=== PATIENT | female | born 1930 | race Caucasian/White ===

== ENCOUNTER 2017-11-16 01:48 | Inpatient (IN) | payer MEDICARE ==
[2017-11-16 02:11] LABS: ADD MAN DIFF? YES; BASO % 0 % (0-3); EOS # 0.1 x10^3/uL (0.0-0.7); EOS % 1 % (0-3); HEMOGLOBIN 11.8 g/dL (12.0-15.5); LYMPH # 0.8 x10^3/uL (1.0-4.8); LYMPH % 6 % (24-48); MEAN CORPUSCULAR HEMOGLOBIN 28 pg (25-35); MEAN CORPUSCULAR HGB CONC 33 g/dL (31-37); MEAN CORPUSCULAR VOLUME 86 fL (79-100); MONO # 0.5 x10^3/uL (0.0-1.1); MONO % 3 % (0-9); NEUT % 90 % (31-73); PLATELET COUNT 243 x10^3/uL (140-400); RED CELL DISTRIBUTION WIDTH 17.8 % (11.5-14.5); WHITE BLOOD COUNT 14.4 x10^3/uL (4.0-11.0)
[2017-11-16 02:21] LABS: ANION GAP 7 (6-14); BLOOD UREA NITROGEN 19 mg/dL (7-20); BUN/CREATININE RATIO 21 (6-20); CALCIUM 8.7 mg/dL (8.5-10.1); CARBON DIOXIDE 31 mmol/L (21-32); CHLORIDE 99 mmol/L (98-107); CREATININE 0.9 mg/dL (0.6-1.0); GFR 59.1; GLUCOSE 125 mg/dL (70-99); POTASSIUM 3.7 mmol/L (3.5-5.1); SODIUM 137 mmol/L (136-145)
[2017-11-16 02:26] LABS: ALBUMIN 2.9 g/dL (3.4-5.0); ALBUMIN/GLOBULIN RATIO 0.7 (1.0-1.7); ALK PHOS 59 U/L (46-116); ALT (SGPT) 13 U/L (14-59); AST (SGOT) 13 U/L (15-37); MAGNESIUM 1.9 mg/dL (1.8-2.4); TOTAL BILIRUBIN 0.7 mg/dL (0.2-1.0); TOTAL PROTEIN 7.3 g/dL (6.4-8.2)
[2017-11-16 02:31] LABS: NT-PRO BNP 721 pg/mL (0-449)
[2017-11-16 02:32] LABS: TROPONINI < 0.017 ng/mL (0.000-0.055)
[2017-11-16 02:42] LABS: % EOS 2 % (0-5); % LYMPHS 8 % (24-48); % MONOS 1 % (0-10); % SEGS 89 % (35-66); ANISOCYTOSIS SLIGHT; HYPOCHROMIA SLIGHT; PLT ESTIMATE ADEQUATE (ADEQUATE)
[2017-11-16 02:49] LABS: TROPONIN BY ISTAT 0.01 ng/ml (<0.08)
[2017-11-16 03:04] LABS: BILIRUBIN,URINE NEGATIVE (NEG); CLARITY,URINE CLOUDY; COLOR,URINE YELLOW; GLUCOSE,URINE NEGATIVE (NEG); NITRITE,URINE NEGATIVE (NEG); PROTEIN,URINE NEGATIVE (NEG-TRACE); UROBILINOGEN,URINE 0.2 mg/dL (0.2 mg/dL)
[2017-11-16 03:13] LABS: AMORPHOUS SEDIMENT,UR PRESENT /HPF; BACTERIA,URINE 0 /HPF (0-FEW); RBC,URINE RARE /HPF (0-2); WBC,URINE RARE /HPF (0-4)
[2017-11-16] MEDS ORDERED: ONDANSETRON PF 4 MG/2 ML VIAL. IV (03:30)
[2017-11-16] MEDS ORDERED: ACETAMINOPHEN 325 MG TABLET. PO (03:30)
[2017-11-16] MEDS ORDERED: fentaNYL PF VIAL 100 MCG/2 ML VIAL IV (03:30)
[2017-11-16 07:12] LABS: TROPONINI 0.019 ng/mL (0.000-0.055)
[2017-11-16] MEDS ORDERED: LABETALOL 20 MG/4 ML DISP.SYRIN. IVP (08:30)
[2017-11-16] MEDS ORDERED: ANTI-COAG MONITOR BY PHARMACY. MC (08:45)
[2017-11-16] MEDS: LISINOPRIL 20 MG TABLET PO (09:00)
[2017-11-16] MEDS: APIXABAN 2.5 MG TABLET. PO (09:00)
[2017-11-16 09:55] LABS: TROPONINI 0.018 ng/mL (0.000-0.055)
[2017-11-16] MEDS: FUROSEMIDE 20 MG TABLET PO (11:04)
[2017-11-16] MEDS: LEVOTHYROXINE 75 MCG TABLET PO (11:07)
[2017-11-16] MEDS: METOPROLOL SUCC 24HR ER 50 MG TAB.ER.24H. PO (11:09)
[2017-11-16] MEDS: POTASSIUM CHLORIDE 10 MEQ TABLET.ER. PO (11:10)
[2017-11-16] MEDS: DIGOXIN 125 MCG TABLET. PO (11:11)
[2017-11-16] MEDS: AMIODARONE HCL 200 MG TABLET. PO (11:12)
[2017-11-16] MEDS: LIDOCAINE (700MG/PATCH) PATCH. TD (11:21)
[2017-11-16 13:00] LABS: CHOLESTEROL 176 mg/dL (0-200); HDLC 43 mg/dL (40-60); LDLC 106 mg/dL (0-100); NON-HDL CHOLESTEROL 133 mg/dL (0-129); TRIGLYCERIDES 135 mg/dL (0-150); VLDLC 27 mg/dL (0-40)
[2017-11-16 13:05] LABS: CHOLESTEROL/HDL RATIO 4.1
[2017-11-16] MEDS: PATCH REMOVAL. MC (21:00)
[2017-11-17 05:17] LABS: ADD MAN DIFF? NO
[2017-11-17 05:41] LABS: BASO % 0 % (0-3); EOS # 0.2 x10^3/uL (0.0-0.7); EOS % 3 % (0-3); HEMOGLOBIN 11.1 g/dL (12.0-15.5); LYMPH # 1.9 x10^3/uL (1.0-4.8); LYMPH % 24 % (24-48); MEAN CORPUSCULAR HEMOGLOBIN 29 pg (25-35); MEAN CORPUSCULAR HGB CONC 34 g/dL (31-37); MEAN CORPUSCULAR VOLUME 86 fL (79-100); MONO # 0.9 x10^3/uL (0.0-1.1); MONO % 11 % (0-9); NEUT # 4.7 x10^3uL (1.8-7.7); NEUT % 61 % (31-73); PLATELET COUNT 202 x10^3/uL (140-400); RED BLOOD COUNT 3.84 x10^6/uL (3.50-5.40); WHITE BLOOD COUNT 7.8 x10^3/uL (4.0-11.0)
[2017-11-17 06:00] LABS: ALBUMIN 2.6 g/dL (3.4-5.0); ALBUMIN/GLOBULIN RATIO 0.7 (1.0-1.7); ALK PHOS 48 U/L (46-116); ALT (SGPT) 13 U/L (14-59); ANION GAP 8 (6-14); AST (SGOT) 14 U/L (15-37); BLOOD UREA NITROGEN 15 mg/dL (7-20); BUN/CREATININE RATIO 21 (6-20); CALCIUM 8.4 mg/dL (8.5-10.1); CARBON DIOXIDE 30 mmol/L (21-32); CHLORIDE 102 mmol/L (98-107); CREATININE 0.7 mg/dL (0.6-1.0); GLUCOSE 94 mg/dL (70-99); POTASSIUM 3.4 mmol/L (3.5-5.1); SODIUM 140 mmol/L (136-145); TOTAL BILIRUBIN 0.5 mg/dL (0.2-1.0); TOTAL PROTEIN 6.5 g/dL (6.4-8.2)
[2017-11-17 06:03] LABS: DIG 1.1 ng/mL (0.9-2.0)
[2017-11-17] MEDS: LEVOTHYROXINE 75 MCG TABLET PO (06:24)
[2017-11-17] MEDS: ACETAMINOPHEN 325 MG TABLET. PO (07:05)
[2017-11-17] MEDS: ASPIRIN ENTERIC COATED 81 MG TABLET.DR. PO (09:12)
[2017-11-17] MEDS: METOPROLOL SUCC 24HR ER 50 MG TAB.ER.24H. PO (09:13)
[2017-11-17] MEDS: LOSARTAN POTASSIUM 50 MG TABLET. PO (09:13)
[2017-11-17] MEDS: DIGOXIN 125 MCG TABLET. PO (09:13)
[2017-11-17] MEDS: POTASSIUM CHLORIDE 10 MEQ TABLET.ER. PO (09:14)
[2017-11-17] MEDS: FUROSEMIDE 20 MG TABLET PO (09:14)
[2017-11-17] MEDS: LIDOCAINE (700MG/PATCH) PATCH. TD (09:17)
[2017-11-17] MEDS: POTASSIUM CHLORIDE 20 MEQ TABLET.ER. PO (12:24)
== END 2017-11-17 13:00 | disposition home or self-care (01) | DRG 640 ==
LOC: ER 01:48 → 5 SOUTH 03:08
DX: E86.0 Dehydration (principal); E43 Unspecified severe protein-calorie malnutrition; G62.9 Polyneuropathy, unspecified; I49.5 Sick sinus syndrome; I48.0 Paroxysmal atrial fibrillation; I13.0 Hypertensive heart and chronic kidney disease with heart failure and stage 1 through stage 4 chronic kidney disease, or unspecified chronic kidney disease; I50.32 Chronic diastolic (congestive) heart failure; Z68.1 Body mass index [BMI] 19.9 or less, adult; R55 Syncope and collapse; I25.10 Atherosclerotic heart disease of native coronary artery without angina pectoris; E03.9 Hypothyroidism, unspecified; E78.5 Hyperlipidemia, unspecified; M19.90 Unspecified osteoarthritis, unspecified site; M81.0 Age-related osteoporosis without current pathological fracture; H35.30 Unspecified macular degeneration; M51.36 Other intervertebral disc degeneration, lumbar region; N18.3 Chronic kidney disease, stage 3 (moderate); D72.829 Elevated white blood cell count, unspecified; T36.1X5A Adverse effect of cephalosporins and other beta-lactam antibiotics, initial encounter; Z95.0 Presence of cardiac pacemaker; Z88.8 Allergy status to other drugs, medicaments and biological substances; Z90.49 Acquired absence of other specified parts of digestive tract; Z90.89 Acquired absence of other organs; Z90.710 Acquired absence of both cervix and uterus; Z85.820 Personal history of malignant melanoma of skin; Z98.49 Cataract extraction status, unspecified eye
CPT/HCPCS: 36415; 51701; 71045; 71100; 80053; 80061; 80162; 81001; 83735; 83880; 84484; 85007; 85025; 93005; 93306; 97162-GP; 97165-GO; 99285; 99285-25

== ENCOUNTER → 2018-03-13 | Outpatient (CLI) | payer MEDICARE ==
[2018-03-13] MEDS: BARIUM SULFATE 40% (APPLE) 148 GM PWD. PO (13:42)
== END | disposition home or self-care (01) ==
LOC: RAD 13:18
DX: R05 Cough (principal); R47.02 Dysphasia; I13.0 Hypertensive heart and chronic kidney disease with heart failure and stage 1 through stage 4 chronic kidney disease, or unspecified chronic kidney disease; I50.32 Chronic diastolic (congestive) heart failure; N18.3 Chronic kidney disease, stage 3 (moderate); E78.5 Hyperlipidemia, unspecified; E03.9 Hypothyroidism, unspecified; E87.6 Hypokalemia; I95.9 Hypotension, unspecified
CPT/HCPCS: 74230; 92526-GN; 92611-GN; G8996-CJ-GN; G8997-CJ-GN; G8998-CJ-GN

== ENCOUNTER 2018-10-28 13:03 | Inpatient (IN) | payer MEDICARE ==
[~2018-10-28] VITALS: Ht 157.5 cm; Wt 39.1 kg
[~2018-10-28 13:03] MED LIST: AMIO100T PO; AMIO200T4 PO; AMLO5TAB10 PO; ASPI-482 PO; ATEN25TA PO; ATEN50TA PO; CHOL10003 PO; DIGO125T PO; EDOX30TA PO; FURO-69 PO; LEVO50TA5 PO; LEVO75TA5 PO; LIDO700A39 TD; LISI-130 PO; LISI-334 PO; LOSA-73 PO; METO-269 PO; POTA10TA12 PO; TEMA7.5C2 PO; UBID1CAP3 PO; VIT1TABL34 PO
[2018-10-28 13:30] LABS: BASO % 0 % (0-3); EOS % 0 % (0-3); HEMATOCRIT 41.3 % (36.0-47.0); LYMPH # 1.6 x10^3/uL (1.0-4.8); LYMPH % 10 % (24-48); MEAN CORPUSCULAR HEMOGLOBIN 31 pg (25-35); MEAN CORPUSCULAR HGB CONC 34 g/dL (31-37); MEAN CORPUSCULAR VOLUME 91 fL (79-100); MONO # 1.8 x10^3/uL (0.0-1.1); MONO % 12 % (0-9); NEUT # 11.7 x10^3uL (1.8-7.7); NEUT % 77 % (31-73); PLATELET COUNT 436 x10^3/uL (140-400); RED BLOOD COUNT 4.53 x10^6/uL (3.50-5.40); RED CELL DISTRIBUTION WIDTH 13.7 % (11.5-14.5); WHITE BLOOD COUNT 15.1 x10^3/uL (4.0-11.0)
[2018-10-28] MEDS ORDERED: IV NORMAL SALINE 1000ML BAG 1,000 ML IV ONE (13:30)
[2018-10-28 13:43] LABS: CALCIUM 8.4 mg/dL (8.5-10.1); CREATININE 0.7 mg/dL (0.6-1.0); GFR 78.8; POTASSIUM 3.1 mmol/L (3.5-5.1)
--- NOTE | 2018-10-28 13:44 | RAD ---
EXAM: CHEST 1 VIEW History: Cough, congestion COMPARISON: 11/16/2017 TECHNIQUE: Single portable radiograph of the chest FINDINGS: The cardiac silhouette is unremarkable. Left-sided cardiac pacer is identified. Mild prominent bilateral interstitial lung markings likely chronic interstitial changes similar to prior exam. IMPRESSION: No radiographic evidence of an acute cardiopulmonary process. Electronically signed by: Eddi Greenfield MD (10/28/2018 1:41 PM) [facility]
[2018-10-28 13:48] LABS: ALBUMIN 3.1 g/dL (3.4-5.0); ALBUMIN/GLOBULIN RATIO 0.8 (1.0-1.7); MAGNESIUM 1.9 mg/dL (1.8-2.4); TOTAL BILIRUBIN 0.8 mg/dL (0.2-1.0); TOTAL PROTEIN 7.2 g/dL (6.4-8.2)
[2018-10-28 13:51] LABS: CREATINE KINASE 21 U/L (26-192); PROTHROMBIN TIME PATIENT 13.3 SEC (11.7-14.0)
--- NOTE | 2018-10-28 13:53 | RAD ---
CT HEAD INDICATION: WEAKNESS COMPARISON: None Available. Exposure: One or more of the following individualized dose reduction techniques were utilized for this examination: 1. Automated exposure control 2. Adjustment of the mA and/or kV according to patient size 3. Use of iterative reconstruction technique TECHNIQUE: 5 mm contiguous axial images were obtained from the skull base to the vertex. FINDINGS: Moderate bilateral periventricular white matter hypodensities likely chronic small vessel ischemic disease. No evidence of acute intracranial hemorrhage. No extra-axial fluid collections. No mass effect or midline shift. Ventricular size is appropriate. Basal cisterns are patent. No fractures identified.Mercer-white differentiation is preserved.Globes and orbits are within normal limits. Paranasal sinuses and mastoid air cells are clear. IMPRESSION: No acute intracranial findings. Electronically signed by: Eddi Greenfield MD (10/28/2018 1:50 PM) [facility]
--- NOTE | 2018-10-28 14:05 | EKG ---
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
[2018-10-28 14:25] LABS: INFLUENZA A PATIENT NEGATIVE (NEGATIVE); INFLUENZA B PATIENT NEGATIVE (NEGATIVE)
[2018-10-28 14:41] LABS: BILIRUBIN,URINE NEGATIVE (NEG); CLARITY,URINE CLEAR; COLOR,URINE YELLOW; NITRITE,URINE NEGATIVE (NEG); PROTEIN,URINE NEGATIVE (NEG-TRACE); UROBILINOGEN,URINE 0.2 mg/dL (0.2 mg/dL)
[2018-10-28] MEDS ORDERED: POTASSIUM CHLORIDE 20 MEQ TABLET.ER. PO ONE (14:45)
[2018-10-28 14:46] LABS: BARBITURATES NEG (NEG); BENZODIAZEPINES NEG (NEG); CANNABINOIDS NEG (NEG); COCAINE NEG (NEG); METHADONE NEG (NEG); OPIATES NEG (NEG); PHENCYCLIDINE NEG (NEG)
[2018-10-28 14:56] LABS: AMPHETAMINE/METHAMPHETAMINE NEG (NEG)
[2018-10-28] MEDS ORDERED: ACETAMINOPHEN 500 MG TABLET PO PRN (15:00)
[2018-10-28] MEDS ORDERED: ONDANSETRON ODT 4 MG TAB.RAPDIS. PO PRN (15:00)
[2018-10-28] MEDS ORDERED: hydrALAZINE 20 MG/ML VIAL. IVP PRN (15:00)
[2018-10-28] MEDS ORDERED: IPRATRPIUM/ALBUTEROL 0.5/2.5MG 3 ML NEBU. NEB ONE (15:00)
[2018-10-28] MEDS ORDERED: ONDANSETRON PF 4 MG/2 ML VIAL. IV PRN ×2 (15:00→15:45)
[2018-10-28 15:04] LABS: BACTERIA,URINE 0 /HPF (0-FEW); RBC,URINE 0 /HPF (0-2); WBC,URINE RARE /HPF (0-4)
--- NOTE | 2018-10-28 15:08 | PDOC1 ---
History and Physical Date of Admission Date of Admission DATE: 10/28/18 TIME: 15:00 Identification/Chief Complaint Chief Complaint cough and weak x 2 weeks, cant get up today Source Source: Caregiver, Chart review, Patient History of Present Illness History of Present Illness Not the best historian that she is elderly. 88-year-old female lives with an equally elderly . Cough and week for 2 weeks culminated in not getting up today hence Dtr. Brought her in. At the ER laboratory remarkable for low sodium 133, potassium 3.1 leukocytosis 15 with no UA sample yet. Reactive thrombocytosis likely from some sort of infection 436 platelets Chest x-ray read as normal, portable view. CT had also normal. FLu neg. NO diarrhea Past medical history significant for hypertension hypothyroidism on medications , indwelling pacer. I'm unable to address the CODE STATUS likely a full code for now. Patient has been here before for syncope. Past Medical History Cardiovascular: AFIB, CHF, HTN, Syncope, Hyperlipidemia Pulmonary: No pertinent hx Heme/Onc: No pertinent hx, Other Hepatobiliary: No pertinent hx Psych: No pertinent hx Musculoskeletal: Osteoarthritis Rheumatologic: No pertinent hx Infectious disease: No pertinent hx Renal/: No pertinent hx Endocrine: Hypothyroidism, Osteoporosis Past Surgical History Past Surgical History: Cholecystectomy, Tonsillectomy, Hysterectomy, Other Family History Family History: No Significant Social History Smoke: No ALCOHOL: none Drugs: None Current Medications Current Medications Current Medications Sodium Chloride 1,000 ml @ 1,000 mls/hr 1X ONCE IV Last administered on at 13:36; Start 10/28/18 at 13:30; Stop 10/28/18 at 14:29; Status DC Potassium Chloride (Klor-Con) 40 meq 1X ONCE PO Last administered on at 14:56; Start 10/28/18 at 14:45; Stop 10/28/18 at 14:46; Status DC Albuterol/ Ipratropium (Duoneb) 3 ml 1X ONCE NEB ; Start 10/28/18 at 15:00; Stop 10/28/18 at 15:01 Active Scripts Active Lidocaine 1 Each Adh..patch 1 Patch TD DAILY Toprol Xl (Metoprolol Succinate) 50 Mg Tab.er.24h 50 Mg PO DAILY Lasix (Furosemide) 20 Mg Tablet 20 Mg PO DAILY 30 Days Reported Losartan Potassium 50 Mg Tablet 50 Mg PO DAILY Levothyroxine Sodium 75 Mcg Tablet 1 Tab PO DAILY Co Q-10 50 Mg Softgel (Ubidecarenone/Vitamin E) 1 Each Capsule 1 Each PO DAILY Preservision Areds Tablet (Vit A/Vit C/Vit E/Zinc/Copper) 1 Each Tablet 1 Each PO DAILY Digoxin 125 Mcg Tablet 1 Tab PO DAILY Amiodarone Hcl 200 Mg Tablet 1 Tab PO DAILY Potassium Chloride 10 Meq Capsule.er 10 Meq PO DAILY Allergies Allergies: Coded Allergies: bacitracin (Verified Allergy, Intermediate, Rash, 06/02/17) polymyxin B (Verified Allergy, Intermediate, Rash, 06/02/17) zolpidem (Verified Adverse Reaction, Intermediate, 06/03/17) Confusion/psychosis ROS Review of System as per HPI, rest 14 pt neg Physical Exam General: No acute distress, Other (very frail looking, minimal sq tissue) HEENT: Atraumatic, PERRLA Lungs: Clear to auscultation, Normal air movement Heart: S1S2, RRR, no thrills, no rubs, no gallops, no murmurs Cardiovascular: S1, S2 Breasts: Normal, Rt breast nml w/o mass, Lt breast nml w/o mass, Nipples normal Rectal Exam: not examined PELVIC: Nml ext genitalia Extremities: No clubbing, No cyanosis, No edema, Normal pulses, No tenderness/ swelling Skin: No rashes, No breakdown, Other (senile skin turgor) Neuro: Normal gait, Normal speech, Strength at 5/5 X4 ext, Normal tone, Sensation intact, Cranial nerves 3-12 NL, Reflexes 2+ Vitals Vitals Vital Signs Date Time Temp Pulse Resp B/P (MAP) Pulse Ox O2 Delivery O2 Flow Rate FiO2 10/28/18 14:14 71 20 94 10/28/18 13:03 98.6 184/84 (117) Room Air 98.6 Labs Labs Laboratory Tests Test 10/28/18 13:10 10/28/18 13:50 10/28/18 14:25 White Blood Count 15.1 x10^3/uL (4.0-11.0) Red Blood Count 4.53 x10^6/uL (3.50-5.40) Hemoglobin 14.0 g/dL (12.0-15.5) Hematocrit 41.3 % (36.0-47.0) Mean Corpuscular Volume 91 fL (79-100) Mean Corpuscular Hemoglobin 31 pg (25-35) Mean Corpuscular Hemoglobin Concent 34 g/dL (31-37) Red Cell Distribution Width 13.7 % (11.5-14.5) Platelet Count 436 x10^3/uL (140-400) Neutrophils (%) (Auto) 77 % (31-73) Lymphocytes (%) (Auto) 10 % (24-48) Monocytes (%) (Auto) 12 % (0-9) Eosinophils (%) (Auto) 0 % (0-3) Basophils (%) (Auto) 0 % (0-3) Neutrophils # (Auto) 11.7 x10^3uL (1.8-7.7) Lymphocytes # (Auto) 1.6 x10^3/uL (1.0-4.8) Monocytes # (Auto) 1.8 x10^3/uL (0.0-1.1) Eosinophils # (Auto) 0.0 x10^3/uL (0.0-0.7) Basophils # (Auto) 0.0 x10^3/uL (0.0-0.2) Prothrombin Time 13.3 SEC (11.7-14.0) Prothromb Time International Ratio 1.0 (0.8-1.1) Sodium Level 133 mmol/L (136-145) Potassium Level 3.1 mmol/L (3.5-5.1) Chloride Level 93 mmol/L (98-107) Carbon Dioxide Level 33 mmol/L (21-32) Anion Gap 7 (6-14) Blood Urea Nitrogen 13 mg/dL (7-20) Creatinine 0.7 mg/dL (0.6-1.0) Estimated GFR (Cockcroft-Gault) 78.8 BUN/Creatinine Ratio 19 (6-20) Glucose Level 115 mg/dL (70-99) Calcium Level 8.4 mg/dL (8.5-10.1) Magnesium Level 1.9 mg/dL (1.8-2.4) Total Bilirubin 0.8 mg/dL (0.2-1.0) Aspartate Amino Transf (AST/SGOT) 11 U/L (15-37) Alanine Aminotransferase (ALT/SGPT) 23 U/L (14-59) Alkaline Phosphatase 59 U/L (46-116) Creatine Kinase 21 U/L (26-192) Creatine Kinase MB (Mass) 0.9 ng/mL (0.0-3.6) Creatine Kinase MB Relative Index % (0-4) Troponin I Quantitative < 0.017 ng/mL (0.000-0.055) DD-Www-K-Type Natriuretic Peptide 927 pg/mL (0-449) Total Protein 7.2 g/dL (6.4-8.2) Albumin 3.1 g/dL (3.4-5.0) Albumin/Globulin Ratio 0.8 (1.0-1.7) Lipase 205 U/L (73-393) Thyroid Stimulating Hormone (TSH) 1.120 uIU/mL (0.358-3.74) Influenza Type A Antigen Negative (NEGATIVE) Influenza Type B Antigen Negative (NEGATIVE) Urine Opiates Screen Neg (NEG) Urine Methadone Screen Neg (NEG) Urine Barbiturates Neg (NEG) Urine Phencyclidine Screen Neg (NEG) Urine Amphetamine/Methamphetamine Neg (NEG) Urine Benzodiazepines Screen Neg (NEG) Urine Cocaine Screen Neg (NEG) Urine Cannabinoids Screen Neg (NEG) Urine Ethyl Alcohol Neg (NEG) Laboratory Tests Test 10/28/18 13:10 10/28/18 13:50 10/28/18 14:25 White Blood Count 15.1 x10^3/uL (4.0-11.0) Red Blood Count 4.53 x10^6/uL (3.50-5.40) Hemoglobin 14.0 g/dL (12.0-15.5) Hematocrit 41.3 % (36.0-47.0) Mean Corpuscular Volume 91 fL (79-100) Mean Corpuscular Hemoglobin 31 pg (25-35) Mean Corpuscular Hemoglobin Concent 34 g/dL (31-37) Red Cell Distribution Width 13.7 % (11.5-14.5) Platelet Count 436 x10^3/uL (140-400) Neutrophils (%) (Auto) 77 % (31-73) Lymphocytes (%) (Auto) 10 % (24-48) Monocytes (%) (Auto) 12 % (0-9) Eosinophils (%) (Auto) 0 % (0-3) Basophils (%) (Auto) 0 % (0-3) Neutrophils # (Auto) 11.7 x10^3uL (1.8-7.7) Lymphocytes # (Auto) 1.6 x10^3/uL (1.0-4.8) Monocytes # (Auto) 1.8 x10^3/uL (0.0-1.1) Eosinophils # (Auto) 0.0 x10^3/uL (0.0-0.7) Basophils # (Auto) 0.0 x10^3/uL (0.0-0.2) Prothrombin Time 13.3 SEC (11.7-14.0) Prothromb Time International Ratio 1.0 (0.8-1.1) Sodium Level 133 mmol/L (136-145) Potassium Level 3.1 mmol/L (3.5-5.1) Chloride Level 93 mmol/L (98-107) Carbon Dioxide Level 33 mmol/L (21-32) Anion Gap 7 (6-14) Blood Urea Nitrogen 13 mg/dL (7-20) Creatinine 0.7 mg/dL (0.6-1.0) Estimated GFR (Cockcroft-Gault) 78.8 BUN/Creatinine Ratio 19 (6-20) Glucose Level 115 mg/dL (70-99) Calcium Level 8.4 mg/dL (8.5-10.1) Magnesium Level 1.9 mg/dL (1.8-2.4) Total Bilirubin 0.8 mg/dL (0.2-1.0) Aspartate Amino Transf (AST/SGOT) 11 U/L (15-37) Alanine Aminotransferase (ALT/SGPT) 23 U/L (14-59) Alkaline Phosphatase 59 U/L (46-116) Creatine Kinase 21 U/L (26-192) Creatine Kinase MB (Mass) 0.9 ng/mL (0.0-3.6) Creatine Kinase MB Relative Index % (0-4) Troponin I Quantitative < 0.017 ng/mL (0.000-0.055) NF-Dyt-C-Type Natriuretic Peptide 927 pg/mL (0-449) Total Protein 7.2 g/dL (6.4-8.2) Albumin 3.1 g/dL (3.4-5.0) Albumin/Globulin Ratio 0.8 (1.0-1.7) Lipase 205 U/L (73-393) Thyroid Stimulating Hormone (TSH) 1.120 uIU/mL (0.358-3.74) Influenza Type A Antigen Negative (NEGATIVE) Influenza Type B Antigen Negative (NEGATIVE) Urine Opiates Screen Neg (NEG) Urine Methadone Screen Neg (NEG) Urine Barbiturates Neg (NEG) Urine Phencyclidine Screen Neg (NEG) Urine Amphetamine/Methamphetamine Neg (NEG) Urine Benzodiazepines Screen Neg (NEG) Urine Cocaine Screen Neg (NEG) Urine Cannabinoids Screen Neg (NEG) Urine Ethyl Alcohol Neg (NEG) VTE Prophylaxis Ordered VTE Prophylaxis Devices: Yes VTE Pharmacological Prophylaxi: Yes Assessment/Plan Assessment/Plan GEn weakness - agreeable to rehab. PT.OT Hypokalemia and hyponat - few PO x 2 weeks COugh - neg flu, no CAP on CXR portable LEukocytosis, thrombocytosis - check UA MOd PCM Poor PO HTN, CHF, a fib - chronic I have reconciled home meds FULL CODE SEEN at ER PLAN: ADmit, PT, OT IVF x 1 NUtrition consult I have reconciled home meds Check UA, hold off abx for now LAbs again monday FAll risk Replace K orally NS for hyponat FULL CODE Seen at ER LORETTA LIN MD Oct 28, 2018 15:08
[2018-10-28] MEDS ORDERED: LIDOCAINE (700MG/PATCH) PATCH. TD SCH (15:30)
[2018-10-28] MEDS: FUROSEMIDE 20 MG TABLET PO SCH (15:30)
[2018-10-28] MEDS ORDERED: AMIODARONE HCL 200 MG TABLET. PO SCH (15:30)
--- NOTE | 2018-10-28 15:42 | PHYS DOC ---
Past Medical History Past Medical History: A-Fib, CAD, Heart Disease, Hypertension, Hypothyroid, Other Additional Past Medical Histor: PACEMAKER,IRREGULAR HEART RATE Past Surgical History: Cholecystectomy, Pacemaker Additional Past Surgical Histo: Bilat.shoulder surgery, MOLE REMOVAL Alcohol Use: None Drug Use: None Adult General Chief Complaint Chief Complaint: WEAKNESS/GENERALIZED HPI HPI Patient is a 88 year old female with history of A. fib, hypertension, hypothyroidism, who presents to the ED today complaining of generalized weakness , and a productive cough for 2 weeks. Patient states symptoms began she was able to get up and move. She states she eventually couldn't walk very well on her own, she started using a walker which is new, she states today she took a nap and woke up and was completely unable to ambulate. Patient states she feels weak and tired. Review of Systems Review of Systems Constitutional: Reports generalized weakness. Denies fever or chills [] Eyes: Denies change in visual acuity, redness, or eye pain [] HENT: Reports nasal congestion, denies sore throat [] Respiratory: Reports a productive cough, denies shortness of breath [] Cardiovascular: No additional information not addressed in HPI [] GI: Denies abdominal pain, nausea, vomiting, bloody stools or diarrhea [] : Denies dysuria or hematuria [] Musculoskeletal: Denies back pain or joint pain [] Integument: Denies rash or skin lesions [] Neurologic: Denies headache, focal weakness or sensory changes [] All other systems were reviewed and found to be within normal limits, except as documented in this note. Current Medications Current Medications Current Medications Medications (Trade) Dose Ordered Sig/Chikis Start Time Stop Time Status Last Admin Dose Admin Potassium Chloride (Klor-Con) 40 meq 1X ONCE 10/28/18 14:45 10/28/18 14:46 DC 10/28/18 14:56 40 MEQ Sodium Chloride 1,000 ml @ 1,000 mls/hr 1X ONCE 10/28/18 13:30 10/28/18 14:29 DC 10/28/18 13:36 1,000 MLS/HR Allergies Allergies Allergies Coded Allergies Type Severity Reaction Last Updated Verified bacitracin Allergy Intermediate Rash 06/02/17 Yes polymyxin B Allergy Intermediate Rash 06/02/17 Yes zolpidem Adverse Reaction Intermediate 06/03/17 Yes Physical Exam Physical Exam Constitutional: Well developed, well nourished, no acute distress, non-toxic appearance. [] HENT: Normocephalic, atraumatic, bilateral external ears normal, oropharynx moist, no oral exudates, nose normal. [] Eyes: PERRLA, EOMI, conjunctiva normal, no discharge. [] Neck: Normal range of motion, no tenderness, supple, no stridor. [] Cardiovascular: Paced rate rhythm Lungs & Thorax: Coarse lung sounds to posterior lung bases, patient is actively coughing in the ED Abdomen: Bowel sounds normal, soft, no tenderness, no masses, no pulsatile masses. [] Skin: Warm, dry, no erythema, no rash. [] Back: No tenderness, no CVA tenderness. [] Extremities: No tenderness, no cyanosis, no clubbing, ROM intact, no edema. [] Neurologic: Alert and oriented X 3, normal motor function, normal sensory function, no focal deficits noted. Cranial nerves II through XII intact Psychologic: Affect normal, judgement normal, mood normal. [] Current Patient Data Vital Signs Vital Signs Date Time Temp Pulse Resp B/P (MAP) Pulse Ox O2 Delivery O2 Flow Rate FiO2 10/28/18 14:14 71 20 94 10/28/18 13:03 98.6 184/84 (117) Room Air 98.6 Lab Values Laboratory Tests Test 10/28/18 13:10 10/28/18 13:50 10/28/18 14:25 White Blood Count 15.1 x10^3/uL (4.0-11.0) H Red Blood Count 4.53 x10^6/uL (3.50-5.40) Hemoglobin 14.0 g/dL (12.0-15.5) Hematocrit 41.3 % (36.0-47.0) Mean Corpuscular Volume 91 fL (79-100) Mean Corpuscular Hemoglobin 31 pg (25-35) Mean Corpuscular Hemoglobin Concent 34 g/dL (31-37) Red Cell Distribution Width 13.7 % (11.5-14.5) Platelet Count 436 x10^3/uL (140-400) H Neutrophils (%) (Auto) 77 % (31-73) H Lymphocytes (%) (Auto) 10 % (24-48) L Monocytes (%) (Auto) 12 % (0-9) H Eosinophils (%) (Auto) 0 % (0-3) Basophils (%) (Auto) 0 % (0-3) Neutrophils # (Auto) 11.7 x10^3uL (1.8-7.7) H Lymphocytes # (Auto) 1.6 x10^3/uL (1.0-4.8) Monocytes # (Auto) 1.8 x10^3/uL (0.0-1.1) H Eosinophils # (Auto) 0.0 x10^3/uL (0.0-0.7) Basophils # (Auto) 0.0 x10^3/uL (0.0-0.2) Prothrombin Time 13.3 SEC (11.7-14.0) Prothrombin Time INR 1.0 (0.8-1.1) Sodium Level 133 mmol/L (136-145) L Potassium Level 3.1 mmol/L (3.5-5.1) L Chloride Level 93 mmol/L (98-107) L Carbon Dioxide Level 33 mmol/L (21-32) H Anion Gap 7 (6-14) Blood Urea Nitrogen 13 mg/dL (7-20) Creatinine 0.7 mg/dL (0.6-1.0) Estimated GFR (Cockcroft-Gault) 78.8 BUN/Creatinine Ratio 19 (6-20) Glucose Level 115 mg/dL (70-99) H Calcium Level 8.4 mg/dL (8.5-10.1) L Magnesium Level 1.9 mg/dL (1.8-2.4) Total Bilirubin 0.8 mg/dL (0.2-1.0) Aspartate Amino Transferase (AST) 11 U/L (15-37) L Alanine Aminotransferase (ALT) 23 U/L (14-59) Alkaline Phosphatase 59 U/L (46-116) Creatine Kinase 21 U/L (26-192) L Creatine Kinase MB (Mass) 0.9 ng/mL (0.0-3.6) Creatine Kinase MB Relative Index % (0-4) Troponin I Quantitative < 0.017 ng/mL (0.000-0.055) ZS-Pqt-Z-Type Natriuretic Peptide 927 pg/mL (0-449) H Total Protein 7.2 g/dL (6.4-8.2) Albumin 3.1 g/dL (3.4-5.0) L Albumin/Globulin Ratio 0.8 (1.0-1.7) L Lipase 205 U/L (73-393) Thyroid Stimulating Hormone (TSH) 1.120 uIU/mL (0.358-3.74) Influenza Type A Antigen Negative (NEGATIVE) Influenza Type B Antigen Negative (NEGATIVE) Urine Collection Type Unknown Urine Color Yellow Urine Clarity Clear Urine pH 7.0 Urine Specific [place] 1.010 Urine Protein Negative mg/dL (NEG-TRACE) Urine Glucose (UA) Negative mg/dL (NEG) Urine Ketones (Stick) Negative mg/dL (NEG) Urine Blood Negative (NEG) Urine Nitrite Negative (NEG) Urine Bilirubin Negative (NEG) Urine Urobilinogen Dipstick 0.2 mg/dL (0.2 mg/dL) Urine Leukocyte Esterase Negative (NEG) Urine RBC 0 /HPF (0-2) Urine WBC Rare /HPF (0-4) Urine Bacteria 0 /HPF (0-FEW) Urine Opiates Screen Neg (NEG) Urine Methadone Screen Neg (NEG) Urine Barbiturates Neg (NEG) Urine Phencyclidine Screen Neg (NEG) Urine Amphetamine/Methamphetamine Neg (NEG) Urine Benzodiazepines Screen Neg (NEG) Urine Cocaine Screen Neg (NEG) Urine Cannabinoids Screen Neg (NEG) Urine Ethyl Alcohol Neg (NEG) Laboratory Tests 10/28/18 13:10 Laboratory Tests 10/28/18 13:10 EKG EKG Interpreted by [facility] rhythm m heart rate 79 no STEMI[] Radiology/Procedures Radiology/Procedures []PROCEDURE: PORTABLE CHEST 1V EXAM: CHEST 1 VIEW History: Cough, congestion COMPARISON: 11/16/2017 TECHNIQUE: Single portable radiograph of the chest FINDINGS: The cardiac silhouette is unremarkable. Left-sided cardiac pacer is identified. Mild prominent bilateral interstitial lung markings likely chronic interstitial changes similar to prior exam. IMPRESSION: No radiographic evidence of an acute cardiopulmonary process. Electronically signed by: Eddi Greenfield MD (10/28/2018 1:41 PM) [facility] DICTATED and SIGNED BY: EDDI GREENFIELD MD DATE: 10/28/18 1344 PROCEDURE: CT HEAD WO CONTRAST CT HEAD INDICATION: WEAKNESS COMPARISON: None Available. Exposure: One or more of the following individualized dose reduction techniques were utilized for this examination: 1. Automated exposure control 2. Adjustment of the mA and/or kV according to patient size 3. Use of iterative reconstruction technique TECHNIQUE: 5 mm contiguous axial images were obtained from the skull base to the vertex. FINDINGS: Moderate bilateral periventricular white matter hypodensities likely chronic small vessel ischemic disease. No evidence of acute intracranial hemorrhage. No extra-axial fluid collections. No mass effect or midline shift. Ventricular size is appropriate. Basal cisterns are patent. No fractures identified.Mercer-white differentiation is preserved.Globes and orbits are within normal limits. Paranasal sinuses and mastoid air cells are clear. IMPRESSION: No acute intracranial findings. Electronically signed by: Eddi Greenfield MD (10/28/2018 1:50 PM) [facility] DICTATED and SIGNED BY: EDDI GREENFIELD MD DATE: 10/28/18 0804 Course & Med Decision Making Course & Med Decision Making Pertinent Labs and Imaging studies reviewed. (See chart for details) This is a 88-year-old female patient presenting to the ED today with generalized weakness and a cough for 2 weeks. See history of present illness. CT of the head is negative, chest xray is negative. WBC 15.1, CMP with K of 3.1 given oral potassium. EKG is negative. in the Ed. She accepted patient for admission. Dragon Disclaimer Dragon Disclaimer This electronic medical record was generated, in whole or in part, using a voice recognition dictation system. Departure Departure Impression: Primary Impression: Generalized weakness Additional Impressions: Hypokalemia Cough Disposition: ADMITTED INPATIENT Condition: STABLE Referrals: AMANDO REYES MD (PCP) Problem Qualifiers VERITO ARNOLD APRN Oct 28, 2018 15:42
[2018-10-28] MEDS ORDERED: fentaNYL PF VIAL 100 MCG/2 ML VIAL IV PRN (15:45)
[2018-10-28] MEDS ORDERED: ACETAMINOPHEN 325 MG TABLET. PO PRN (15:45)
[2018-10-28 15:54] LABS: FREE T4 1.63 ng/dL (0.76-1.46)
[2018-10-28] MEDS: DIGOXIN 125 MCG TABLET. PO SCH (16:00)
[2018-10-28] MEDS: LOSARTAN POTASSIUM 50 MG TABLET. PO SCH (16:00)
[2018-10-28] MEDS: METOPROLOL SUCC 24HR ER 50 MG TAB.ER.24H. PO SCH (16:00)
[2018-10-28] MEDS ORDERED: IV 1/2 NORMAL SALINE 1,000 ML IV ONE (16:00)
[2018-10-28] MEDS ORDERED: IV NORMAL SALINE 1000ML BAG 1,000 ML IV SCH (17:00)
[2018-10-28] MEDS: IPRATRPIUM/ALBUTEROL 0.5/2.5MG 3 ML NEBU. NEB SCH ×2 (17:30→20:08)
[2018-10-28 19:00] VITALS: BP 136/65
[2018-10-28] MEDS: guaiFENesin DM 600/30MG 1 TAB TAB.ER.12H PO SCH (20:41)
[2018-10-28] MEDS ORDERED: PATCH REMOVAL. MC SCH (21:00)
[2018-10-28 23:00] VITALS: BP 163/70
[2018-10-29 03:00] VITALS: BP 124/75
[2018-10-29] MEDS: LEVOTHYROXINE 75 MCG TABLET PO SCH (05:50)
[2018-10-29] MEDS ORDERED: IV NORMAL SALINE 1000ML BAG 1,000 ML IV SCH (06:00)
[2018-10-29 07:00] VITALS: BP 127/67
[2018-10-29 07:16] LABS: BASO % 0 % (0-3); EOS # 0.1 x10^3/uL (0.0-0.7); EOS % 1 % (0-3); HEMATOCRIT 36.7 % (36.0-47.0); HEMOGLOBIN 12.1 g/dL (12.0-15.5); LYMPH # 1.8 x10^3/uL (1.0-4.8); LYMPH % 16 % (24-48); MEAN CORPUSCULAR HEMOGLOBIN 30 pg (25-35); MEAN CORPUSCULAR HGB CONC 33 g/dL (31-37); MEAN CORPUSCULAR VOLUME 93 fL (79-100); MONO # 1.2 x10^3/uL (0.0-1.1); MONO % 11 % (0-9); NEUT % 73 % (31-73); PLATELET COUNT 368 x10^3/uL (140-400); RED BLOOD COUNT 3.97 x10^6/uL (3.50-5.40); RED CELL DISTRIBUTION WIDTH 13.7 % (11.5-14.5); WHITE BLOOD COUNT 11.1 x10^3/uL (4.0-11.0)
[2018-10-29 07:33] LABS: CALCIUM 7.7 mg/dL (8.5-10.1); CREATININE 0.4 mg/dL (0.6-1.0); GFR 150.3; POTASSIUM 3.2 mmol/L (3.5-5.1)
[2018-10-29] MEDS: IPRATRPIUM/ALBUTEROL 0.5/2.5MG 3 ML NEBU. NEB SCH ×4 (07:44→20:00)
[2018-10-29] MEDS ORDERED: UBIDECARENONE PO SCH (09:00)
[2018-10-29] MEDS ORDERED: VITAMIN E PO SCH (09:00)
[2018-10-29] MEDS: LOSARTAN POTASSIUM 50 MG TABLET. PO SCH (09:09)
[2018-10-29] MEDS: MULTIVITAMIN I-VITE TABLET. PO SCH (09:10)
[2018-10-29] MEDS: POTASSIUM CHLORIDE 10 MEQ TABLET.ER. PO SCH (09:10)
[2018-10-29] MEDS: guaiFENesin DM 600/30MG 1 TAB TAB.ER.12H PO SCH ×2 (09:11→20:20)
[2018-10-29] MEDS: FUROSEMIDE 20 MG TABLET PO SCH (09:11)
[2018-10-29] MEDS: DIGOXIN 125 MCG TABLET. PO SCH (09:11)
[2018-10-29] MEDS: METOPROLOL SUCC 24HR ER 50 MG TAB.ER.24H. PO SCH (09:12)
[2018-10-29 11:00] VITALS: BP 110/56
--- NOTE | 2018-10-29 11:21 | PDOC ---
PROGRESS NOTES Chief Complaint Chief Complaint Cough x2 weeks Weakness Hypokalemia Hyponatremia (resolved) Leukocytosis (resolved) AFib CHF HTN HLD OA Hypothyroid History of Present Illness History of Present Illness Pt was seen and examined in her room this morning She was resting in bed with NAD We discussed case with software project engineer was at bedside and we discussed difficulty going back home without help, so informed pt and family about placing a consult that will likely send her to SNU for placement Vitals Vitals Vital Signs Date Time Temp Pulse Resp B/P (MAP) Pulse Ox O2 Delivery O2 Flow Rate FiO2 10/29/18 09:12 75 127/67 10/29/18 07:44 91 Room Air 10/29/18 07:00 98.3 16 98.3 Physical Exam General: No acute distress, Other (very frail looking, minimal sq tissue) Heart: No murmurs, Other (irregular rhythm) Lungs: Crackles Abdomen: Normal bowel sounds, Soft Extremities: No clubbing, No cyanosis, No edema, Normal pulses, No tenderness/ swelling Skin: No rashes, No breakdown, Other (senile skin turgor) Labs LABS Laboratory Tests Test 10/28/18 13:10 10/28/18 13:50 10/28/18 14:25 10/29/18 06:25 White Blood Count 15.1 x10^3/uL (4.0-11.0) 11.1 x10^3/uL (4.0-11.0) Red Blood Count 4.53 x10^6/uL (3.50-5.40) 3.97 x10^6/uL (3.50-5.40) Hemoglobin 14.0 g/dL (12.0-15.5) 12.1 g/dL (12.0-15.5) Hematocrit 41.3 % (36.0-47.0) 36.7 % (36.0-47.0) Mean Corpuscular Volume 91 fL (79-100) 93 fL (79-100) Mean Corpuscular Hemoglobin 31 pg (25-35) 30 pg (25-35) Mean Corpuscular Hemoglobin Concent 34 g/dL (31-37) 33 g/dL (31-37) Red Cell Distribution Width 13.7 % (11.5-14.5) 13.7 % (11.5-14.5) Platelet Count 436 x10^3/uL (140-400) 368 x10^3/uL (140-400) Neutrophils (%) (Auto) 77 % (31-73) 73 % (31-73) Lymphocytes (%) (Auto) 10 % (24-48) 16 % (24-48) Monocytes (%) (Auto) 12 % (0-9) 11 % (0-9) Eosinophils (%) (Auto) 0 % (0-3) 1 % (0-3) Basophils (%) (Auto) 0 % (0-3) 0 % (0-3) Neutrophils # (Auto) 11.7 x10^3uL (1.8-7.7) 8.0 x10^3uL (1.8-7.7) Lymphocytes # (Auto) 1.6 x10^3/uL (1.0-4.8) 1.8 x10^3/uL (1.0-4.8) Monocytes # (Auto) 1.8 x10^3/uL (0.0-1.1) 1.2 x10^3/uL (0.0-1.1) Eosinophils # (Auto) 0.0 x10^3/uL (0.0-0.7) 0.1 x10^3/uL (0.0-0.7) Basophils # (Auto) 0.0 x10^3/uL (0.0-0.2) 0.0 x10^3/uL (0.0-0.2) Prothrombin Time 13.3 SEC (11.7-14.0) Prothromb Time International Ratio 1.0 (0.8-1.1) Sodium Level 133 mmol/L (136-145) 136 mmol/L (136-145) Potassium Level 3.1 mmol/L (3.5-5.1) 3.2 mmol/L (3.5-5.1) Chloride Level 93 mmol/L (98-107) 99 mmol/L (98-107) Carbon Dioxide Level 33 mmol/L (21-32) 30 mmol/L (21-32) Anion Gap 7 (6-14) 7 (6-14) Blood Urea Nitrogen 13 mg/dL (7-20) 10 mg/dL (7-20) Creatinine 0.7 mg/dL (0.6-1.0) 0.4 mg/dL (0.6-1.0) Estimated GFR (Cockcroft-Gault) 78.8 150.3 BUN/Creatinine Ratio 19 (6-20) Glucose Level 115 mg/dL (70-99) 91 mg/dL (70-99) Calcium Level 8.4 mg/dL (8.5-10.1) 7.7 mg/dL (8.5-10.1) Magnesium Level 1.9 mg/dL (1.8-2.4) Total Bilirubin 0.8 mg/dL (0.2-1.0) Aspartate Amino Transf (AST/SGOT) 11 U/L (15-37) Alanine Aminotransferase (ALT/SGPT) 23 U/L (14-59) Alkaline Phosphatase 59 U/L (46-116) Creatine Kinase 21 U/L (26-192) Creatine Kinase MB (Mass) 0.9 ng/mL (0.0-3.6) Creatine Kinase MB Relative Index % (0-4) Troponin I Quantitative < 0.017 ng/mL (0.000-0.055) EN-Cti-H-Type Natriuretic Peptide 927 pg/mL (0-449) Total Protein 7.2 g/dL (6.4-8.2) Albumin 3.1 g/dL (3.4-5.0) Albumin/Globulin Ratio 0.8 (1.0-1.7) Lipase 205 U/L (73-393) Thyroid Stimulating Hormone (TSH) 1.120 uIU/mL (0.358-3.74) Free Thyroxine 1.63 ng/dL (0.76-1.46) Free Triiodothyronine (T3) pg/mL 1.44 pg/mL (2.18-3.98) Influenza Type A Antigen Negative (NEGATIVE) Influenza Type B Antigen Negative (NEGATIVE) Urine Collection Type Unknown Urine Color Yellow Urine Clarity Clear Urine pH 7.0 Urine Specific [place] 1.010 Urine Protein Negative mg/dL (NEG-TRACE) Urine Glucose (UA) Negative mg/dL (NEG) Urine Ketones (Stick) Negative mg/dL (NEG) Urine Blood Negative (NEG) Urine Nitrite Negative (NEG) Urine Bilirubin Negative (NEG) Urine Urobilinogen Dipstick 0.2 mg/dL (0.2 mg/dL) Urine Leukocyte Esterase Negative (NEG) Urine RBC 0 /HPF (0-2) Urine WBC Rare /HPF (0-4) Urine Bacteria 0 /HPF (0-FEW) Urine Opiates Screen Neg (NEG) Urine Methadone Screen Neg (NEG) Urine Barbiturates Neg (NEG) Urine Phencyclidine Screen Neg (NEG) Urine Amphetamine/Methamphetamine Neg (NEG) Urine Benzodiazepines Screen Neg (NEG) Urine Cocaine Screen Neg (NEG) Urine Cannabinoids Screen Neg (NEG) Urine Ethyl Alcohol Neg (NEG) Review of Systems Review of Systems Pt reported weakness Pt denies CP, SOB, N/V, NOVAK Assessment and Plan Assessmemt and Plan Problems Medical Problems: (1) Cough Status: Acute (2) Generalized weakness Status: Acute (3) Hypokalemia Status: Acute Assessment Cough x2 weeks Weakness Hypokalemia Hyponatremia (resolved) Leukocytosis (resolved) AFib CHF HTN HLD OA Hypothyroid Plan Cardiology consult- h/o Afib with pacemaker, BNP elevated SS consult- SNU placement seems likely PT/OT Home meds Nutrition consult Frequent labs- watch Na and K+ Appreciate subspecialty recs D/C dispo pending Comment Review of Relevant I have reviewed the following items sanjay (where applicable) has been applied. Labs Laboratory Tests Test 10/28/18 13:10 10/28/18 13:50 10/28/18 14:25 10/29/18 06:25 White Blood Count 15.1 x10^3/uL (4.0-11.0) 11.1 x10^3/uL (4.0-11.0) Red Blood Count 4.53 x10^6/uL (3.50-5.40) 3.97 x10^6/uL (3.50-5.40) Hemoglobin 14.0 g/dL (12.0-15.5) 12.1 g/dL (12.0-15.5) Hematocrit 41.3 % (36.0-47.0) 36.7 % (36.0-47.0) Mean Corpuscular Volume 91 fL (79-100) 93 fL (79-100) Mean Corpuscular Hemoglobin 31 pg (25-35) 30 pg (25-35) Mean Corpuscular Hemoglobin Concent 34 g/dL (31-37) 33 g/dL (31-37) Red Cell Distribution Width 13.7 % (11.5-14.5) 13.7 % (11.5-14.5) Platelet Count 436 x10^3/uL (140-400) 368 x10^3/uL (140-400) Neutrophils (%) (Auto) 77 % (31-73) 73 % (31-73) Lymphocytes (%) (Auto) 10 % (24-48) 16 % (24-48) Monocytes (%) (Auto) 12 % (0-9) 11 % (0-9) Eosinophils (%) (Auto) 0 % (0-3) 1 % (0-3) Basophils (%) (Auto) 0 % (0-3) 0 % (0-3) Neutrophils # (Auto) 11.7 x10^3uL (1.8-7.7) 8.0 x10^3uL (1.8-7.7) Lymphocytes # (Auto) 1.6 x10^3/uL (1.0-4.8) 1.8 x10^3/uL (1.0-4.8) Monocytes # (Auto) 1.8 x10^3/uL (0.0-1.1) 1.2 x10^3/uL (0.0-1.1) Eosinophils # (Auto) 0.0 x10^3/uL (0.0-0.7) 0.1 x10^3/uL (0.0-0.7) Basophils # (Auto) 0.0 x10^3/uL (0.0-0.2) 0.0 x10^3/uL (0.0-0.2) Prothrombin Time 13.3 SEC (11.7-14.0) Prothromb Time International Ratio 1.0 (0.8-1.1) Sodium Level 133 mmol/L (136-145) 136 mmol/L (136-145) Potassium Level 3.1 mmol/L (3.5-5.1) 3.2 mmol/L (3.5-5.1) Chloride Level 93 mmol/L (98-107) 99 mmol/L (98-107) Carbon Dioxide Level 33 mmol/L (21-32) 30 mmol/L (21-32) Anion Gap 7 (6-14) 7 (6-14) Blood Urea Nitrogen 13 mg/dL (7-20) 10 mg/dL (7-20) Creatinine 0.7 mg/dL (0.6-1.0) 0.4 mg/dL (0.6-1.0) Estimated GFR (Cockcroft-Gault) 78.8 150.3 BUN/Creatinine Ratio 19 (6-20) Glucose Level 115 mg/dL (70-99) 91 mg/dL (70-99) Calcium Level 8.4 mg/dL (8.5-10.1) 7.7 mg/dL (8.5-10.1) Magnesium Level 1.9 mg/dL (1.8-2.4) Total Bilirubin 0.8 mg/dL (0.2-1.0) Aspartate Amino Transf (AST/SGOT) 11 U/L (15-37) Alanine Aminotransferase (ALT/SGPT) 23 U/L (14-59) Alkaline Phosphatase 59 U/L (46-116) Creatine Kinase 21 U/L (26-192) Creatine Kinase MB (Mass) 0.9 ng/mL (0.0-3.6) Creatine Kinase MB Relative Index % (0-4) Troponin I Quantitative < 0.017 ng/mL (0.000-0.055) BZ-Dqj-M-Type Natriuretic Peptide 927 pg/mL (0-449) Total Protein 7.2 g/dL (6.4-8.2) Albumin 3.1 g/dL (3.4-5.0) Albumin/Globulin Ratio 0.8 (1.0-1.7) Lipase 205 U/L (73-393) Thyroid Stimulating Hormone (TSH) 1.120 uIU/mL (0.358-3.74) Free Thyroxine 1.63 ng/dL (0.76-1.46) Free Triiodothyronine (T3) pg/mL 1.44 pg/mL (2.18-3.98) Influenza Type A Antigen Negative (NEGATIVE) Influenza Type B Antigen Negative (NEGATIVE) Urine Collection Type Unknown Urine Color Yellow Urine Clarity Clear Urine pH 7.0 Urine Specific [place] 1.010 Urine Protein Negative mg/dL (NEG-TRACE) Urine Glucose (UA) Negative mg/dL (NEG) Urine Ketones (Stick) Negative mg/dL (NEG) Urine Blood Negative (NEG) Urine Nitrite Negative (NEG) Urine Bilirubin Negative (NEG) Urine Urobilinogen Dipstick 0.2 mg/dL (0.2 mg/dL) Urine Leukocyte Esterase Negative (NEG) Urine RBC 0 /HPF (0-2) Urine WBC Rare /HPF (0-4) Urine Bacteria 0 /HPF (0-FEW) Urine Opiates Screen Neg (NEG) Urine Methadone Screen Neg (NEG) Urine Barbiturates Neg (NEG) Urine Phencyclidine Screen Neg (NEG) Urine Amphetamine/Methamphetamine Neg (NEG) Urine Benzodiazepines Screen Neg (NEG) Urine Cocaine Screen Neg (NEG) Urine Cannabinoids Screen Neg (NEG) Urine Ethyl Alcohol Neg (NEG) Laboratory Tests Test 10/28/18 13:10 10/28/18 13:50 10/28/18 14:25 10/29/18 06:25 White Blood Count 15.1 x10^3/uL (4.0-11.0) 11.1 x10^3/uL (4.0-11.0) Red Blood Count 4.53 x10^6/uL (3.50-5.40) 3.97 x10^6/uL (3.50-5.40) Hemoglobin 14.0 g/dL (12.0-15.5) 12.1 g/dL (12.0-15.5) Hematocrit 41.3 % (36.0-47.0) 36.7 % (36.0-47.0) Mean Corpuscular Volume 91 fL (79-100) 93 fL (79-100) Mean Corpuscular Hemoglobin 31 pg (25-35) 30 pg (25-35) Mean Corpuscular Hemoglobin Concent 34 g/dL (31-37) 33 g/dL (31-37) Red Cell Distribution Width 13.7 % (11.5-14.5) 13.7 % (11.5-14.5) Platelet Count 436 x10^3/uL (140-400) 368 x10^3/uL (140-400) Neutrophils (%) (Auto) 77 % (31-73) 73 % (31-73) Lymphocytes (%) (Auto) 10 % (24-48) 16 % (24-48) Monocytes (%) (Auto) 12 % (0-9) 11 % (0-9) Eosinophils (%) (Auto) 0 % (0-3) 1 % (0-3) Basophils (%) (Auto) 0 % (0-3) 0 % (0-3) Neutrophils # (Auto) 11.7 x10^3uL (1.8-7.7) 8.0 x10^3uL (1.8-7.7) Lymphocytes # (Auto) 1.6 x10^3/uL (1.0-4.8) 1.8 x10^3/uL (1.0-4.8) Monocytes # (Auto) 1.8 x10^3/uL (0.0-1.1) 1.2 x10^3/uL (0.0-1.1) Eosinophils # (Auto) 0.0 x10^3/uL (0.0-0.7) 0.1 x10^3/uL (0.0-0.7) Basophils # (Auto) 0.0 x10^3/uL (0.0-0.2) 0.0 x10^3/uL (0.0-0.2) Prothrombin Time 13.3 SEC (11.7-14.0) Prothromb Time International Ratio 1.0 (0.8-1.1) Sodium Level 133 mmol/L (136-145) 136 mmol/L (136-145) Potassium Level 3.1 mmol/L (3.5-5.1) 3.2 mmol/L (3.5-5.1) Chloride Level 93 mmol/L (98-107) 99 mmol/L (98-107) Carbon Dioxide Level 33 mmol/L (21-32) 30 mmol/L (21-32) Anion Gap 7 (6-14) 7 (6-14) Blood Urea Nitrogen 13 mg/dL (7-20) 10 mg/dL (7-20) Creatinine 0.7 mg/dL (0.6-1.0) 0.4 mg/dL (0.6-1.0) Estimated GFR (Cockcroft-Gault) 78.8 150.3 BUN/Creatinine Ratio 19 (6-20) Glucose Level 115 mg/dL (70-99) 91 mg/dL (70-99) Calcium Level 8.4 mg/dL (8.5-10.1) 7.7 mg/dL (8.5-10.1) Magnesium Level 1.9 mg/dL (1.8-2.4) Total Bilirubin 0.8 mg/dL (0.2-1.0) Aspartate Amino Transf (AST/SGOT) 11 U/L (15-37) Alanine Aminotransferase (ALT/SGPT) 23 U/L (14-59) Alkaline Phosphatase 59 U/L (46-116) Creatine Kinase 21 U/L (26-192) Creatine Kinase MB (Mass) 0.9 ng/mL (0.0-3.6) Creatine Kinase MB Relative Index % (0-4) Troponin I Quantitative < 0.017 ng/mL (0.000-0.055) RE-Kfl-B-Type Natriuretic Peptide 927 pg/mL (0-449) Total Protein 7.2 g/dL (6.4-8.2) Albumin 3.1 g/dL (3.4-5.0) Albumin/Globulin Ratio 0.8 (1.0-1.7) Lipase 205 U/L (73-393) Thyroid Stimulating Hormone (TSH) 1.120 uIU/mL (0.358-3.74) Free Thyroxine 1.63 ng/dL (0.76-1.46) Free Triiodothyronine (T3) pg/mL 1.44 pg/mL (2.18-3.98) Influenza Type A Antigen Negative (NEGATIVE) Influenza Type B Antigen Negative (NEGATIVE) Urine Collection Type Unknown Urine Color Yellow Urine Clarity Clear Urine pH 7.0 Urine Specific [place] 1.010 Urine Protein Negative mg/dL (NEG-TRACE) Urine Glucose (UA) Negative mg/dL (NEG) Urine Ketones (Stick) Negative mg/dL (NEG) Urine Blood Negative (NEG) Urine Nitrite Negative (NEG) Urine Bilirubin Negative (NEG) Urine Urobilinogen Dipstick 0.2 mg/dL (0.2 mg/dL) Urine Leukocyte Esterase Negative (NEG) Urine RBC 0 /HPF (0-2) Urine WBC Rare /HPF (0-4) Urine Bacteria 0 /HPF (0-FEW) Urine Opiates Screen Neg (NEG) Urine Methadone Screen Neg (NEG) Urine Barbiturates Neg (NEG) Urine Phencyclidine Screen Neg (NEG) Urine Amphetamine/Methamphetamine Neg (NEG) Urine Benzodiazepines Screen Neg (NEG) Urine Cocaine Screen Neg (NEG) Urine Cannabinoids Screen Neg (NEG) Urine Ethyl Alcohol Neg (NEG) Medications Current Medications Sodium Chloride 1,000 ml @ 1,000 mls/hr 1X ONCE IV Last administered on at 13:36; Start 10/28/18 at 13:30; Stop 10/28/18 at 14:29; Status DC Potassium Chloride (Klor-Con) 40 meq 1X ONCE PO Last administered on at 14:56; Start 10/28/18 at 14:45; Stop 10/28/18 at 14:46; Status DC Albuterol/ Ipratropium (Duoneb) 3 ml 1X ONCE NEB ; Start 10/28/18 at 15:00; Stop 10/28/18 at 15:01; Status DC Hydralazine HCl (Apresoline Inj) 10 mg PRN Q4HRS PRN IVP ELEVATED BP, SEE COMMENTS; Start 10/28/18 at 15:00 Acetaminophen (Tylenol) 500 mg PRN Q6HRS PRN PO MILD PAIN / TEMP; Start at 15:00 Ondansetron HCl (Zofran) 4 mg PRN Q6HRS PRN IV NAUSEA/VOMITING; Start 10/28/18 at 15:00 Ondansetron HCl (Zofran Odt) 4 mg PRN Q6HRS PRN PO NAUSEA/VOMITING; Start 10/28 at 15:00 Sodium Chloride 1,000 ml @ 75 mls/hr 1X ONCE IV Last administered on at 16:36; Start 10/28/18 at 16:00; Stop 10/28/18 at 16:45; Status DC Amiodarone HCl (Cordarone) 200 mg DAILY PO ; Start 10/28/18 at 15:30; Stop 10/28 at 16:39; Status DC Digoxin (Lanoxin) 125 mcg DAILY PO Last administered on 10/29/18at 09:11; Start 10/28/18 at 16:00 Furosemide (Lasix) 20 mg DAILY PO Last administered on 10/29/18at 09:11; Start 10/28/18 at 15:30 Levothyroxine Sodium (Synthroid) 75 mcg DAILY06 PO Last administered on at 05:50; Start 10/29/18 at 06:00 Losartan Potassium (Cozaar) 50 mg DAILY PO Last administered on 10/29/18at 09:09 ; Start 10/28/18 at 16:00 Potassium Chloride (Klor-Con) 10 meq DAILY PO Last administered on 10/29/18at 09 :10; Start 10/29/18 at 09:00 Lidocaine (Lidoderm) 1 patch DAILY TD ; Start 10/28/18 at 15:30; Stop 10/28/18 at 16:39; Status DC Metoprolol Succinate (Toprol Xl) 50 mg DAILY PO Last administered on 10/29/18at 09:12; Start 10/28/18 at 16:00 Non-Formulary Medication (Ubidecarenone/ Vitamin E (Co Q-10 50 Mg Softgel)) 1 each DAILY PO ; Start 10/29/18 at 09:00; Status UNV Multivitamins/ Minerals (I-Shmuel) 1 tab DAILY PO Last administered on 10/29/18at 09:10; Start 10/29/18 at 09:00 Miscellaneous (Lidoderm Patch Removal) 1 ea QHS MC ; Start 10/28/18 at 21:00; Status Cancel Ondansetron HCl (Zofran) 4 mg PRN Q8HRS PRN IV NAUSEA/VOMITING; Start 10/28/18 at 15:45; Stop 10/29/18 at 15:44; Status UNV Fentanyl Citrate (Fentanyl 2ml Vial) 50 mcg PRN Q1HR PRN IV PAIN; Start at 15:45; Stop 10/29/18 at 15:44 Acetaminophen (Tylenol) 650 mg PRN Q4HRS PRN PO FEVER; Start 10/28/18 at 15:45 ; Stop 10/29/18 at 15:44; Status UNV Albuterol/ Ipratropium (Duoneb) 3 ml RTQID NEB Last administered on 10/29/18at 07:44; Start 10/28/18 at 16:00; Stop 10/29/18 at 15:59 Sodium Chloride 1,000 ml @ 75 mls/hr [id number] IV ; Start 10/29/18 at 06:00; Stop 10/29/18 at 06:00; Status DC Sodium Chloride 1,000 ml @ 75 mls/hr [id number] IV Last administered on at 17:22; Start 10/28/18 at 17:00; Stop 10/29/18 at 06:19; Status DC Guaifenesin (MUCINEX ER with DM) 1 tab BID PO Last administered on 10/29/18at 09 :11; Start 10/28/18 at 21:00 Active Scripts Active Toprol Xl (Metoprolol Succinate) 50 Mg Tab.er.24h 50 Mg PO DAILY Lasix (Furosemide) 20 Mg Tablet 20 Mg PO DAILY 30 Days Reported Losartan Potassium 50 Mg Tablet 50 Mg PO DAILY Levothyroxine Sodium 75 Mcg Tablet 1 Tab PO DAILY Co Q-10 50 Mg Softgel (Ubidecarenone/Vitamin E) 1 Each Capsule 1 Each PO DAILY Preservision Areds Tablet (Vit A/Vit C/Vit E/Zinc/Copper) 1 Each Tablet 1 Each PO DAILY Digoxin 125 Mcg Tablet 1 Tab PO DAILY Potassium Chloride 10 Meq Capsule.er 10 Meq PO DAILY Vitals/I & O Vital Sign - Last 24 Hours 10/28/18 10/28/18 10/28/18 10/28/18 13:03 13:21 13:44 14:14 Temp 98.6 98.6 Pulse 69 66 65 71 Resp 18 19 19 20 B/P (MAP) 184/84 (117) Pulse Ox 94 94 95 94 O2 Delivery Room Air 10/28/18 10/28/18 10/28/18 10/28/18 14:44 15:14 15:44 16:14 Pulse 63 61 62 63 Resp 20 20 Pulse Ox 93 94 93 10/28/18 10/28/18 10/28/18 10/28/18 17:35 19:00 20:01 20:08 Temp 98.1 98.1 Pulse 71 Resp 18 B/P (MAP) 136/65 (88) Pulse Ox 91 97 O2 Delivery Room Air Room Air Room Air Room Air 10/28/18 10/29/18 10/29/18 10/29/18 23:00 03:00 07:00 07:44 Temp 98.0 97.9 98.3 98.0 97.9 98.3 Pulse 60 63 75 Resp 18 18 16 B/P (MAP) 163/70 (101) 124/75 (91) 127/67 (87) Pulse Ox 95 96 94 91 O2 Delivery Room Air Room Air Room Air Room Air 10/29/18 10/29/18 10/29/18 09:09 09:11 09:12 Pulse 75 75 75 B/P (MAP) 127/67 127/67 127/67 Intake and Output 10/28/18 10/28/18 10/29/18 14:59 22:59 06:59 Intake Total 150 ml 0 ml Balance 150 ml 0 ml MILY HERNANDEZ III DO Oct 29, 2018 11:21
--- NOTE | 2018-10-29 12:37 | PDOC2 ---
RAMIRO DANIEL REWRITE EDITOR 10/29/18 1237: CARDIAC CONSULT DATE OF CONSULT Date of Consult DATE: 10/29/18 TIME: 12:23 REASON FOR CONSULT Reason for Consult: pacemaker, elevated BNP REFERRING PHYSICIAN Referring Physician: Dr. Celeste SOURCE Source: Chart review, Patient HISTORY OF PRESENT ILLNESS HISTORY OF PRESENT ILLNESS This is an 88 yo female who presented secondary to weakness and productive cough. Has been weak and unable to do much activity for the last couple of weeks. No fevers. Has had productive cough for the last week. Denies any shortness of breath, orthopnea, or LE edema. Denies any chest pain, palpitations , dizziness, diaphoresis, or nausea/vomiting. PAST MEDICAL HISTORY Past Medical History Cardiovascular: AFIB (with cardioversion), CHF, HTN, Syncope, Hyperlipidemia, SSS/tachy-dominick syndrome, pericardial tamponade Pulmonary: amiodarone lung injury Heme/Onc: anemia with blood transfusion Hepatobiliary: No pertinent hx Psych: No pertinent hx Musculoskeletal: Osteoarthritis Rheumatologic: No pertinent hx Infectious disease: No pertinent hx ENT: macular degeneration Renal/: CKD Endocrine: Hypothyroidism, Osteoporosis Dermatology: Melanoma PAST SURGICAL HISTORY Past Surgical History LINQ placement and removal, PPM (biotronik), Cholecystectomy, Tonsillectomy, Hysterectomy, Other (melanoma removal), cataract removal, pericardiocentesis FAMILY HISTORY Family History: Other (noncontributory ) SOCIAL HISTORY Social History Smoke: No ALCOHOL: none Drugs: None Lives: with Family CURRENT MEDICATIONS CURRENT MEDICATIONS Current Medications Medications (Trade) Dose Ordered Sig/Chikis Route PRN Reason Start Time Stop Time Status Last Admin Dose Admin Sodium Chloride 1,000 ml @ 1,000 mls/hr 1X ONCE IV 10/28/18 13:30 10/28/18 14:29 DC 10/28/18 13:36 Potassium Chloride (Klor-Con) 40 meq 1X ONCE PO 10/28/18 14:45 10/28/18 14:46 DC 10/28/18 14:56 Sodium Chloride 1,000 ml @ 75 mls/hr 1X ONCE IV 10/28/18 16:00 10/28/18 16:45 DC 10/28/18 16:36 Digoxin (Lanoxin) 125 mcg DAILY PO 10/28/18 16:00 10/29/18 09:11 Furosemide (Lasix) 20 mg DAILY PO 10/28/18 15:30 10/29/18 09:11 Levothyroxine Sodium (Synthroid) 75 mcg DAILY06 PO 10/29/18 06:00 10/29/18 05:50 Losartan Potassium (Cozaar) 50 mg DAILY PO 10/28/18 16:00 10/29/18 09:09 Potassium Chloride (Klor-Con) 10 meq DAILY PO 10/29/18 09:00 10/29/18 09:10 Metoprolol Succinate (Toprol Xl) 50 mg DAILY PO 10/28/18 16:00 10/29/18 09:12 Multivitamins/ Minerals (I-Shmuel) 1 tab DAILY PO 10/29/18 09:00 10/29/18 09:10 Albuterol/ Ipratropium (Duoneb) 3 ml RTQID NEB 10/28/18 16:00 10/29/18 15:59 10/29/18 07:44 Sodium Chloride 1,000 ml @ 75 mls/hr [id number] IV 10/28/18 17:00 10/29/18 06:19 DC 10/28/18 17:22 Guaifenesin (MUCINEX ER with DM) 1 tab BID PO 10/28/18 21:00 10/29/18 09:11 ALLERGIES ALLERGIES: Coded Allergies: bacitracin (Verified Allergy, Intermediate, Rash, 06/02/17) polymyxin B (Verified Allergy, Intermediate, Rash, 06/02/17) zolpidem (Verified Adverse Reaction, Intermediate, 06/03/17) Confusion/psychosis ROS Review of System 14 point ROS conducted with pertinent positives noted above in HPI. PHYSICAL EXAM PHYSICAL EXAM General: Alert, Oriented X3, Cooperative, No acute distress HEENT: Atraumatic, Mucous membr. moist/pink Lungs: Other (faint basilar wheezes) Heart: Regular rate (v paced), Other (2/6 apical murmur) Abdomen: Soft, No tenderness Extremities: No cyanosis, No edema Skin: No breakdown, No significant lesion Neuro: Normal speech, Sensation intact Psych/Mental Status: Mood NL MUSCULOSKELETAL: Osteoarthritic changes both hands VITALS VITALS Vital Signs Date Time Temp Pulse Resp B/P (MAP) Pulse Ox O2 Delivery O2 Flow Rate FiO2 10/29/18 11:00 98.3 69 16 110/56 (74) 93 Room Air 98.3 LABS Lab: Laboratory Tests Test 10/28/18 13:10 10/28/18 13:50 10/28/18 14:25 10/29/18 06:25 White Blood Count 15.1 x10^3/uL (4.0-11.0) 11.1 x10^3/uL (4.0-11.0) Red Blood Count 4.53 x10^6/uL (3.50-5.40) 3.97 x10^6/uL (3.50-5.40) Hemoglobin 14.0 g/dL (12.0-15.5) 12.1 g/dL (12.0-15.5) Hematocrit 41.3 % (36.0-47.0) 36.7 % (36.0-47.0) Mean Corpuscular Volume 91 fL (79-100) 93 fL (79-100) Mean Corpuscular Hemoglobin 31 pg (25-35) 30 pg (25-35) Mean Corpuscular Hemoglobin Concent 34 g/dL (31-37) 33 g/dL (31-37) Red Cell Distribution Width 13.7 % (11.5-14.5) 13.7 % (11.5-14.5) Platelet Count 436 x10^3/uL (140-400) 368 x10^3/uL (140-400) Neutrophils (%) (Auto) 77 % (31-73) 73 % (31-73) Lymphocytes (%) (Auto) 10 % (24-48) 16 % (24-48) Monocytes (%) (Auto) 12 % (0-9) 11 % (0-9) Eosinophils (%) (Auto) 0 % (0-3) 1 % (0-3) Basophils (%) (Auto) 0 % (0-3) 0 % (0-3) Neutrophils # (Auto) 11.7 x10^3uL (1.8-7.7) 8.0 x10^3uL (1.8-7.7) Lymphocytes # (Auto) 1.6 x10^3/uL (1.0-4.8) 1.8 x10^3/uL (1.0-4.8) Monocytes # (Auto) 1.8 x10^3/uL (0.0-1.1) 1.2 x10^3/uL (0.0-1.1) Eosinophils # (Auto) 0.0 x10^3/uL (0.0-0.7) 0.1 x10^3/uL (0.0-0.7) Basophils # (Auto) 0.0 x10^3/uL (0.0-0.2) 0.0 x10^3/uL (0.0-0.2) Prothrombin Time 13.3 SEC (11.7-14.0) Prothromb Time International Ratio 1.0 (0.8-1.1) Sodium Level 133 mmol/L (136-145) 136 mmol/L (136-145) Potassium Level 3.1 mmol/L (3.5-5.1) 3.2 mmol/L (3.5-5.1) Chloride Level 93 mmol/L (98-107) 99 mmol/L (98-107) Carbon Dioxide Level 33 mmol/L (21-32) 30 mmol/L (21-32) Anion Gap 7 (6-14) 7 (6-14) Blood Urea Nitrogen 13 mg/dL (7-20) 10 mg/dL (7-20) Creatinine 0.7 mg/dL (0.6-1.0) 0.4 mg/dL (0.6-1.0) Estimated GFR (Cockcroft-Gault) 78.8 150.3 BUN/Creatinine Ratio 19 (6-20) Glucose Level 115 mg/dL (70-99) 91 mg/dL (70-99) Calcium Level 8.4 mg/dL (8.5-10.1) 7.7 mg/dL (8.5-10.1) Magnesium Level 1.9 mg/dL (1.8-2.4) Total Bilirubin 0.8 mg/dL (0.2-1.0) Aspartate Amino Transf (AST/SGOT) 11 U/L (15-37) Alanine Aminotransferase (ALT/SGPT) 23 U/L (14-59) Alkaline Phosphatase 59 U/L (46-116) Creatine Kinase 21 U/L (26-192) Creatine Kinase MB (Mass) 0.9 ng/mL (0.0-3.6) Creatine Kinase MB Relative Index % (0-4) Troponin I Quantitative < 0.017 ng/mL (0.000-0.055) OD-Fdr-J-Type Natriuretic Peptide 927 pg/mL (0-449) Total Protein 7.2 g/dL (6.4-8.2) Albumin 3.1 g/dL (3.4-5.0) Albumin/Globulin Ratio 0.8 (1.0-1.7) Lipase 205 U/L (73-393) Thyroid Stimulating Hormone (TSH) 1.120 uIU/mL (0.358-3.74) Free Thyroxine 1.63 ng/dL (0.76-1.46) Free Triiodothyronine (T3) pg/mL 1.44 pg/mL (2.18-3.98) Influenza Type A Antigen Negative (NEGATIVE) Influenza Type B Antigen Negative (NEGATIVE) Urine Collection Type Unknown Urine Color Yellow Urine Clarity Clear Urine pH 7.0 Urine Specific [place] 1.010 Urine Protein Negative mg/dL (NEG-TRACE) Urine Glucose (UA) Negative mg/dL (NEG) Urine Ketones (Stick) Negative mg/dL (NEG) Urine Blood Negative (NEG) Urine Nitrite Negative (NEG) Urine Bilirubin Negative (NEG) Urine Urobilinogen Dipstick 0.2 mg/dL (0.2 mg/dL) Urine Leukocyte Esterase Negative (NEG) Urine RBC 0 /HPF (0-2) Urine WBC Rare /HPF (0-4) Urine Bacteria 0 /HPF (0-FEW) Urine Opiates Screen Neg (NEG) Urine Methadone Screen Neg (NEG) Urine Barbiturates Neg (NEG) Urine Phencyclidine Screen Neg (NEG) Urine Amphetamine/Methamphetamine Neg (NEG) Urine Benzodiazepines Screen Neg (NEG) Urine Cocaine Screen Neg (NEG) Urine Cannabinoids Screen Neg (NEG) Urine Ethyl Alcohol Neg (NEG) ECHOCARDIOGRAM ECHOCARDIOGRAM <Conclusion> There is moderate to severe concentric left ventricular hypertrophy. The systolic function is mildly impaired. The Ejection Fraction is 50%. Septal motion suggestive of conduction defect. Otherwise, mild global hypokinesis. There is a pacemaker lead in the right ventricle. DATE: 11/16/17 1445 HEART CATH HEART CATH Conclusion 1. Nonobstructive single-vessel coronary artery disease with 50-60% stenosis involving left anterior descending artery. 2. Normal left ventricular systolic function with ejection fraction estimated at 55-60%. 3. No significant mitral regurgitation or aortic stenosis. Recommendations Medical management. DATE: 07/10/15 1119 ASSESSMENT/PLAN ASSESSMENT/PLAN 1. Weakness, PCM. poor PO intake 2. Chronic diastolic heart failure: Clinically compensated. NT Pro BNP mildly elevated, but insignificant based upon age adjustment. CXR without vascular congestion 3. Hypokalemia 4. PAFIB; presently SR with intermittent pacing. No on OAC or ASA at home. 5. SSS s/p PPM (Biotronik). Tele reviewed; having episodes of possible PAT. 6. CKD3 7. HTN: controlled 8. CAD: nonobstructive 9. Hypothyroidism: on replacement Recommendations Replace K+ Check Mg- replace as warranted Continue with metoprolol, digoxin. Has been deemed a poor candidate for anticoagulation. Will have device interrogated to note AFIB/arrhythmia burden. Add ECASA 81 mg for stroke prevention Agree with PT/OT Supportive care NOREEN SCHILLING MD 10/29/18 2341: CARDIAC CONSULT ASSESSMENT/PLAN ASSESSMENT/PLAN Pt. seen and examined. Agree with above Inspector Dials note. 88 y.o known to us from prior admits Presenting with non-specific cough/weakness. No clear signs of heart failure echo wnl Supportive care. No further CV testing needed. ?viral RAMIRO DANIEL APRN Oct 29, 2018 12:37 NOREEN SCHILLING MD Oct 29, 2018 23:41
[2018-10-29 15:00] VITALS: BP 137/61
--- NOTE | 2018-10-29 15:47 | CARD ---
MR#: [id number] Date of Study: 10/29/2018 Ordering Physician: RAMIRO DANIEL, Referring Physician: LORETTA LIN Tech: Chelsea [facility] APPROVED REPORT EXAM: Two-dimensional and M-mode echocardiogram with Doppler and color Doppler. Other Information Quality : FairHR: 91bpm Rhythm : NSRTechnically limited study due to body habitus. INDICATION Congestive Heart Failure Surgery/Intervention Pacemaker: 2D DIMENSIONS RVDd2.9 (2.9-3.5cm)Left Atrium(2D)3.1 (1.6-4.0cm) IVSd1.3 (0.7-1.1cm)Aortic Root(2D)2.6 (2.0-3.7cm) LVDd3.5 (3.9-5.9cm)LVOT Diameter2.0 (1.8-2.4cm) PWd1.1 (0.7-1.1cm)LVDs2.4 (2.5-4.0cm) FS (%) 31.1 %SV30.9 ml LVEF(%)55.0 (>50%) Aortic Valve AoV Peak Judson.155.1cm/sAoV VTI19.9cm AO Peak GR.9.6mmHgLVOT Peak Judson.122.4cm/s AO Mean GR.4mmHgAVA (VMAX)2.48cm2 DENISSE (VTI)2.50cm2 Mitral Valve MV E Cmpxybhi27.2cm/sMV DECEL [id number] MV A Xmkfowsp31.1cm/sE/A Ratio0.6 MV A Kgrypzos214er Pulmonary Valve PV Peak Vcqttgaq125.9cm/s Tricuspid Valve TR P. Bynsywax295ka/sRAP [id number] TR Peak Gr.30igNjFDWR14niPs LEFT VENTRICLE The left ventricle cavity is small. There is mild concentric left ventricular hypertrophy. The left v entricular systolic function is normal and the ejection fraction is within normal range.The Ejection Fraction is 50-55%. Septal motion consistent with conduction abnormality. Otherwise grossly normal Tr ansmitral Doppler flow pattern is abnormal. RIGHT VENTRICLE The right ventricle is normal size. There is normal right ventricular wall thickness. The right ventr icular systolic function is normal. Pacer lead noted in RV/RA. ATRIA The left atrium size is normal. The right atrium size is normal. The interatrial septum is intact wit h no evidence for an atrial septal defect or patent foramen ovale as noted on 2-D or Doppler imaging. AORTIC VALVE The aortic valve is not well visualized. Doppler and Color Flow revealed no significant aortic regurg itation. There is no significant aortic valvular stenosis. MITRAL VALVE The mitral valve is thickened but opens well. There is no evidence of mitral valve prolapse. There is no mitral valve stenosis. Doppler and Color-flow revealed trace mitral regurgitation. TRICUSPID VALVE The tricuspid valve is normal in structure and function. Doppler and Color Flow revealed mild tricusp id regurgitation. There is moderate pulmonary hypertension. The PA pressure was estimated at 46 mmHg. There is no tricuspid valve prolapse or vegetation. There is no tricuspid valve stenosis. PULMONIC VALVE The pulmonic valve is not well visualized. GREAT VESSELS The aortic root is normal in size. The ascending aorta is normal in size. The IVC is normal in size a nd collapses >50% with inspiration. PERICARDIAL EFFUSION There is no evidence of significant pericardial effusion. Critical Notification Critical Value: No <Conclusion> The left ventricular systolic function is normal and the ejection fraction is within normal range.The Ejection Fraction is 50-55%. Septal motion consistent with conduction abnormality. Otherwise grossly normal Pacer lead noted in RV/RA. Doppler and Color Flow revealed mild tricuspid regurgitation. There is moderate pulmonary hypertensi on. The PA pressure was estimated at 46 mmHg. Signed by : Alejo Augustine, Electronically Approved : 10/29/2018 15:46:22
[2018-10-29] MEDS ORDERED: MAGNESIUM SULFATE 2GM 50 ML IV ONE (16:00)
[2018-10-29] MEDS ORDERED: POTASSIUM CHLORIDE 20 MEQ TABLET.ER. PO ONE (16:00)
[2018-10-29 19:00] VITALS: BP 146/58
[2018-10-29 23:00] VITALS: BP 138/61
[2018-10-30 03:02] VITALS: BP 154/57
[2018-10-30] MEDS: LEVOTHYROXINE 75 MCG TABLET PO SCH (05:18)
[2018-10-30 06:08] LABS: BASO % 0 % (0-3); EOS # 0.1 x10^3/uL (0.0-0.7); EOS % 1 % (0-3); HEMATOCRIT 36.9 % (36.0-47.0); HEMOGLOBIN 12.2 g/dL (12.0-15.5); LYMPH % 17 % (24-48); MEAN CORPUSCULAR HEMOGLOBIN 31 pg (25-35); MEAN CORPUSCULAR HGB CONC 33 g/dL (31-37); MEAN CORPUSCULAR VOLUME 92 fL (79-100); MONO # 1.3 x10^3/uL (0.0-1.1); MONO % 11 % (0-9); NEUT # 8.2 x10^3uL (1.8-7.7); NEUT % 71 % (31-73); PLATELET COUNT 356 x10^3/uL (140-400); WHITE BLOOD COUNT 11.6 x10^3/uL (4.0-11.0)
[2018-10-30 07:00] VITALS: BP 158/64
[2018-10-30 07:48] LABS: ALBUMIN 2.4 g/dL (3.4-5.0); ALBUMIN/GLOBULIN RATIO 0.6 (1.0-1.7); CREATININE 0.5 mg/dL (0.6-1.0); GFR 116.2; POTASSIUM 3.3 mmol/L (3.5-5.1); TOTAL BILIRUBIN 0.9 mg/dL (0.2-1.0); TOTAL PROTEIN 6.1 g/dL (6.4-8.2)
[2018-10-30] MEDS: IPRATRPIUM/ALBUTEROL 0.5/2.5MG 3 ML NEBU. NEB SCH ×4 (07:51→19:58)
[2018-10-30] MEDS: MULTIVITAMIN I-VITE TABLET. PO SCH (08:20)
[2018-10-30] MEDS: POTASSIUM CHLORIDE 10 MEQ TABLET.ER. PO SCH (08:21)
[2018-10-30] MEDS: METOPROLOL SUCC 24HR ER 50 MG TAB.ER.24H. PO SCH (08:21)
[2018-10-30] MEDS: LOSARTAN POTASSIUM 50 MG TABLET. PO SCH (08:21)
[2018-10-30] MEDS: DIGOXIN 125 MCG TABLET. PO SCH (08:23)
[2018-10-30] MEDS: FUROSEMIDE 20 MG TABLET PO SCH (08:23)
[2018-10-30] MEDS: guaiFENesin DM 600/30MG 1 TAB TAB.ER.12H PO SCH ×2 (08:23→21:06)
--- NOTE | 2018-10-30 10:43 | PDOC ---
PROGRESS NOTES Chief Complaint Chief Complaint Cough x2 weeks Weakness Hypokalemia Hyponatremia (resolved) Leukocytosis (resolved) AFib CHF HTN HLD OA Hypothyroid History of Present Illness History of Present Illness Pt was seen and examined in her room this morning She was resting in chair with NAD, did note she had a cough Pt eating breakfast at bedside We discussed case with RN Discussed that we will likely send her to SNU for placement Vitals Vitals Vital Signs Date Time Temp Pulse Resp B/P (MAP) Pulse Ox O2 Delivery O2 Flow Rate FiO2 10/30/18 08:23 70 154/57 10/30/18 08:00 Room Air 10/30/18 07:51 93 10/30/18 07:00 99.0 16 99.0 Physical Exam General: No acute distress, Other (very frail looking, minimal sq tissue) Heart: No murmurs, Other (irregular rhythm) Lungs: Crackles Abdomen: Normal bowel sounds, Soft Extremities: No clubbing, No cyanosis, No edema, Normal pulses, No tenderness/ swelling Skin: No rashes, No breakdown, Other (senile skin turgor) Labs LABS Laboratory Tests Test 10/30/18 05:50 White Blood Count 11.6 x10^3/uL (4.0-11.0) Red Blood Count 4.00 x10^6/uL (3.50-5.40) Hemoglobin 12.2 g/dL (12.0-15.5) Hematocrit 36.9 % (36.0-47.0) Mean Corpuscular Volume 92 fL (79-100) Mean Corpuscular Hemoglobin 31 pg (25-35) Mean Corpuscular Hemoglobin Concent 33 g/dL (31-37) Red Cell Distribution Width 14.0 % (11.5-14.5) Platelet Count 356 x10^3/uL (140-400) Neutrophils (%) (Auto) 71 % (31-73) Lymphocytes (%) (Auto) 17 % (24-48) Monocytes (%) (Auto) 11 % (0-9) Eosinophils (%) (Auto) 1 % (0-3) Basophils (%) (Auto) 0 % (0-3) Neutrophils # (Auto) 8.2 x10^3uL (1.8-7.7) Lymphocytes # (Auto) 2.0 x10^3/uL (1.0-4.8) Monocytes # (Auto) 1.3 x10^3/uL (0.0-1.1) Eosinophils # (Auto) 0.1 x10^3/uL (0.0-0.7) Basophils # (Auto) 0.0 x10^3/uL (0.0-0.2) Sodium Level 137 mmol/L (136-145) Potassium Level 3.3 mmol/L (3.5-5.1) Chloride Level 98 mmol/L (98-107) Carbon Dioxide Level 30 mmol/L (21-32) Anion Gap 9 (6-14) Blood Urea Nitrogen 11 mg/dL (7-20) Creatinine 0.5 mg/dL (0.6-1.0) Estimated GFR (Cockcroft-Gault) 116.2 BUN/Creatinine Ratio 22 (6-20) Glucose Level 93 mg/dL (70-99) Calcium Level 8.0 mg/dL (8.5-10.1) Total Bilirubin 0.9 mg/dL (0.2-1.0) Aspartate Amino Transf (AST/SGOT) 12 U/L (15-37) Alanine Aminotransferase (ALT/SGPT) 15 U/L (14-59) Alkaline Phosphatase 59 U/L (46-116) Total Protein 6.1 g/dL (6.4-8.2) Albumin 2.4 g/dL (3.4-5.0) Albumin/Globulin Ratio 0.6 (1.0-1.7) Review of Systems Review of Systems Pt reports cough, very mild SOB Pt denies CP, NOVAK, n/v Assessment and Plan Assessmemt and Plan Problems Medical Problems: (1) Cough Status: Acute (2) Generalized weakness Status: Acute (3) Hypokalemia Status: Acute Assessment Cough x2 weeks Weakness Hypokalemia Hyponatremia (resolved) Leukocytosis- 11.6 today AFib CHF HTN HLD OA Hypothyroid Plan Start Augmentin- cough >2 weeks with mild leukocytosis, CXR was clear earlier this visit Cardiology consult- replacing K+ and Mg, interrogated pacemaker, add ASA for stroke prophylaxis Blood culture +, only 1/4 bottles, G+ cocci, likely contaminated PT/OT Home meds Frequent labs- watch Na and K+ Appreciate subspecialty recs SS consult- SNU placement seems likely D/C dispo pending- likely to go tomorrow morning to SNU Comment Review of Relevant I have reviewed the following items sanjay (where applicable) has been applied. Labs Laboratory Tests Test 10/28/18 13:10 10/28/18 13:50 10/28/18 14:25 10/29/18 06:25 White Blood Count 15.1 x10^3/uL (4.0-11.0) 11.1 x10^3/uL (4.0-11.0) Red Blood Count 4.53 x10^6/uL (3.50-5.40) 3.97 x10^6/uL (3.50-5.40) Hemoglobin 14.0 g/dL (12.0-15.5) 12.1 g/dL (12.0-15.5) Hematocrit 41.3 % (36.0-47.0) 36.7 % (36.0-47.0) Mean Corpuscular Volume 91 fL (79-100) 93 fL (79-100) Mean Corpuscular Hemoglobin 31 pg (25-35) 30 pg (25-35) Mean Corpuscular Hemoglobin Concent 34 g/dL (31-37) 33 g/dL (31-37) Red Cell Distribution Width 13.7 % (11.5-14.5) 13.7 % (11.5-14.5) Platelet Count 436 x10^3/uL (140-400) 368 x10^3/uL (140-400) Neutrophils (%) (Auto) 77 % (31-73) 73 % (31-73) Lymphocytes (%) (Auto) 10 % (24-48) 16 % (24-48) Monocytes (%) (Auto) 12 % (0-9) 11 % (0-9) Eosinophils (%) (Auto) 0 % (0-3) 1 % (0-3) Basophils (%) (Auto) 0 % (0-3) 0 % (0-3) Neutrophils # (Auto) 11.7 x10^3uL (1.8-7.7) 8.0 x10^3uL (1.8-7.7) Lymphocytes # (Auto) 1.6 x10^3/uL (1.0-4.8) 1.8 x10^3/uL (1.0-4.8) Monocytes # (Auto) 1.8 x10^3/uL (0.0-1.1) 1.2 x10^3/uL (0.0-1.1) Eosinophils # (Auto) 0.0 x10^3/uL (0.0-0.7) 0.1 x10^3/uL (0.0-0.7) Basophils # (Auto) 0.0 x10^3/uL (0.0-0.2) 0.0 x10^3/uL (0.0-0.2) Prothrombin Time 13.3 SEC (11.7-14.0) Prothromb Time International Ratio 1.0 (0.8-1.1) Sodium Level 133 mmol/L (136-145) 136 mmol/L (136-145) Potassium Level 3.1 mmol/L (3.5-5.1) 3.2 mmol/L (3.5-5.1) Chloride Level 93 mmol/L (98-107) 99 mmol/L (98-107) Carbon Dioxide Level 33 mmol/L (21-32) 30 mmol/L (21-32) Anion Gap 7 (6-14) 7 (6-14) Blood Urea Nitrogen 13 mg/dL (7-20) 10 mg/dL (7-20) Creatinine 0.7 mg/dL (0.6-1.0) 0.4 mg/dL (0.6-1.0) Estimated GFR (Cockcroft-Gault) 78.8 150.3 BUN/Creatinine Ratio 19 (6-20) Glucose Level 115 mg/dL (70-99) 91 mg/dL (70-99) Calcium Level 8.4 mg/dL (8.5-10.1) 7.7 mg/dL (8.5-10.1) Magnesium Level 1.9 mg/dL (1.8-2.4) 1.6 mg/dL (1.8-2.4) Total Bilirubin 0.8 mg/dL (0.2-1.0) Aspartate Amino Transf (AST/SGOT) 11 U/L (15-37) Alanine Aminotransferase (ALT/SGPT) 23 U/L (14-59) Alkaline Phosphatase 59 U/L (46-116) Creatine Kinase 21 U/L (26-192) Creatine Kinase MB (Mass) 0.9 ng/mL (0.0-3.6) Creatine Kinase MB Relative Index % (0-4) Troponin I Quantitative < 0.017 ng/mL (0.000-0.055) QX-Nce-S-Type Natriuretic Peptide 927 pg/mL (0-449) Total Protein 7.2 g/dL (6.4-8.2) Albumin 3.1 g/dL (3.4-5.0) Albumin/Globulin Ratio 0.8 (1.0-1.7) Lipase 205 U/L (73-393) Thyroid Stimulating Hormone (TSH) 1.120 uIU/mL (0.358-3.74) Free Thyroxine 1.63 ng/dL (0.76-1.46) Free Triiodothyronine (T3) pg/mL 1.44 pg/mL (2.18-3.98) Influenza Type A Antigen Negative (NEGATIVE) Influenza Type B Antigen Negative (NEGATIVE) Urine Collection Type Unknown Urine Color Yellow Urine Clarity Clear Urine pH 7.0 Urine Specific [place] 1.010 Urine Protein Negative mg/dL (NEG-TRACE) Urine Glucose (UA) Negative mg/dL (NEG) Urine Ketones (Stick) Negative mg/dL (NEG) Urine Blood Negative (NEG) Urine Nitrite Negative (NEG) Urine Bilirubin Negative (NEG) Urine Urobilinogen Dipstick 0.2 mg/dL (0.2 mg/dL) Urine Leukocyte Esterase Negative (NEG) Urine RBC 0 /HPF (0-2) Urine WBC Rare /HPF (0-4) Urine Bacteria 0 /HPF (0-FEW) Urine Opiates Screen Neg (NEG) Urine Methadone Screen Neg (NEG) Urine Barbiturates Neg (NEG) Urine Phencyclidine Screen Neg (NEG) Urine Amphetamine/Methamphetamine Neg (NEG) Urine Benzodiazepines Screen Neg (NEG) Urine Cocaine Screen Neg (NEG) Urine Cannabinoids Screen Neg (NEG) Urine Ethyl Alcohol Neg (NEG) Test 10/30/18 05:50 White Blood Count 11.6 x10^3/uL (4.0-11.0) Red Blood Count 4.00 x10^6/uL (3.50-5.40) Hemoglobin 12.2 g/dL (12.0-15.5) Hematocrit 36.9 % (36.0-47.0) Mean Corpuscular Volume 92 fL (79-100) Mean Corpuscular Hemoglobin 31 pg (25-35) Mean Corpuscular Hemoglobin Concent 33 g/dL (31-37) Red Cell Distribution Width 14.0 % (11.5-14.5) Platelet Count 356 x10^3/uL (140-400) Neutrophils (%) (Auto) 71 % (31-73) Lymphocytes (%) (Auto) 17 % (24-48) Monocytes (%) (Auto) 11 % (0-9) Eosinophils (%) (Auto) 1 % (0-3) Basophils (%) (Auto) 0 % (0-3) Neutrophils # (Auto) 8.2 x10^3uL (1.8-7.7) Lymphocytes # (Auto) 2.0 x10^3/uL (1.0-4.8) Monocytes # (Auto) 1.3 x10^3/uL (0.0-1.1) Eosinophils # (Auto) 0.1 x10^3/uL (0.0-0.7) Basophils # (Auto) 0.0 x10^3/uL (0.0-0.2) Sodium Level 137 mmol/L (136-145) Potassium Level 3.3 mmol/L (3.5-5.1) Chloride Level 98 mmol/L (98-107) Carbon Dioxide Level 30 mmol/L (21-32) Anion Gap 9 (6-14) Blood Urea Nitrogen 11 mg/dL (7-20) Creatinine 0.5 mg/dL (0.6-1.0) Estimated GFR (Cockcroft-Gault) 116.2 BUN/Creatinine Ratio 22 (6-20) Glucose Level 93 mg/dL (70-99) Calcium Level 8.0 mg/dL (8.5-10.1) Total Bilirubin 0.9 mg/dL (0.2-1.0) Aspartate Amino Transf (AST/SGOT) 12 U/L (15-37) Alanine Aminotransferase (ALT/SGPT) 15 U/L (14-59) Alkaline Phosphatase 59 U/L (46-116) Total Protein 6.1 g/dL (6.4-8.2) Albumin 2.4 g/dL (3.4-5.0) Albumin/Globulin Ratio 0.6 (1.0-1.7) Laboratory Tests Test 10/30/18 05:50 White Blood Count 11.6 x10^3/uL (4.0-11.0) Red Blood Count 4.00 x10^6/uL (3.50-5.40) Hemoglobin 12.2 g/dL (12.0-15.5) Hematocrit 36.9 % (36.0-47.0) Mean Corpuscular Volume 92 fL (79-100) Mean Corpuscular Hemoglobin 31 pg (25-35) Mean Corpuscular Hemoglobin Concent 33 g/dL (31-37) Red Cell Distribution Width 14.0 % (11.5-14.5) Platelet Count 356 x10^3/uL (140-400) Neutrophils (%) (Auto) 71 % (31-73) Lymphocytes (%) (Auto) 17 % (24-48) Monocytes (%) (Auto) 11 % (0-9) Eosinophils (%) (Auto) 1 % (0-3) Basophils (%) (Auto) 0 % (0-3) Neutrophils # (Auto) 8.2 x10^3uL (1.8-7.7) Lymphocytes # (Auto) 2.0 x10^3/uL (1.0-4.8) Monocytes # (Auto) 1.3 x10^3/uL (0.0-1.1) Eosinophils # (Auto) 0.1 x10^3/uL (0.0-0.7) Basophils # (Auto) 0.0 x10^3/uL (0.0-0.2) Sodium Level 137 mmol/L (136-145) Potassium Level 3.3 mmol/L (3.5-5.1) Chloride Level 98 mmol/L (98-107) Carbon Dioxide Level 30 mmol/L (21-32) Anion Gap 9 (6-14) Blood Urea Nitrogen 11 mg/dL (7-20) Creatinine 0.5 mg/dL (0.6-1.0) Estimated GFR (Cockcroft-Gault) 116.2 BUN/Creatinine Ratio 22 (6-20) Glucose Level 93 mg/dL (70-99) Calcium Level 8.0 mg/dL (8.5-10.1) Total Bilirubin 0.9 mg/dL (0.2-1.0) Aspartate Amino Transf (AST/SGOT) 12 U/L (15-37) Alanine Aminotransferase (ALT/SGPT) 15 U/L (14-59) Alkaline Phosphatase 59 U/L (46-116) Total Protein 6.1 g/dL (6.4-8.2) Albumin 2.4 g/dL (3.4-5.0) Albumin/Globulin Ratio 0.6 (1.0-1.7) Microbiology 10/28/18 Blood Culture - Preliminary, Resulted NO GROWTH AFTER 1 DAY Medications Current Medications Sodium Chloride 1,000 ml @ 1,000 mls/hr 1X ONCE IV Last administered on at 13:36; Start 10/28/18 at 13:30; Stop 10/28/18 at 14:29; Status DC Potassium Chloride (Klor-Con) 40 meq 1X ONCE PO Last administered on at 14:56; Start 10/28/18 at 14:45; Stop 10/28/18 at 14:46; Status DC Albuterol/ Ipratropium (Duoneb) 3 ml 1X ONCE NEB ; Start 10/28/18 at 15:00; Stop 10/28/18 at 15:01; Status DC Hydralazine HCl (Apresoline Inj) 10 mg PRN Q4HRS PRN IVP ELEVATED BP, SEE COMMENTS; Start 10/28/18 at 15:00 Acetaminophen (Tylenol) 500 mg PRN Q6HRS PRN PO MILD PAIN / TEMP; Start at 15:00 Ondansetron HCl (Zofran) 4 mg PRN Q6HRS PRN IV NAUSEA/VOMITING; Start 10/28/18 at 15:00 Ondansetron HCl (Zofran Odt) 4 mg PRN Q6HRS PRN PO NAUSEA/VOMITING; Start 10/28 at 15:00 Sodium Chloride 1,000 ml @ 75 mls/hr 1X ONCE IV Last administered on at 16:36; Start 10/28/18 at 16:00; Stop 10/28/18 at 16:45; Status DC Amiodarone HCl (Cordarone) 200 mg DAILY PO ; Start 10/28/18 at 15:30; Stop 10/28 at 16:39; Status DC Digoxin (Lanoxin) 125 mcg DAILY PO Last administered on 10/30/18 08:23; Start 10/28/18 at 16:00 Furosemide (Lasix) 20 mg DAILY PO Last administered on 10/30/18 08:23; Start 10/28/18 at 15:30 Levothyroxine Sodium (Synthroid) 75 mcg DAILY06 PO Last administered on 05:18; Start 10/29/18 at 06:00 Losartan Potassium (Cozaar) 50 mg DAILY PO Last administered on 10/30/18 08:21 ; Start 10/28/18 at 16:00 Potassium Chloride (Klor-Con) 10 meq DAILY PO Last administered on 10/30/18 08 :21; Start 10/29/18 at 09:00 Lidocaine (Lidoderm) 1 patch DAILY TD ; Start 10/28/18 at 15:30; Stop 10/28/18 at 16:39; Status DC Metoprolol Succinate (Toprol Xl) 50 mg DAILY PO Last administered on 10/30/18 08:21; Start 10/28/18 at 16:00 Non-Formulary Medication (Ubidecarenone/ Vitamin E (Co Q-10 50 Mg Softgel)) 1 each DAILY PO ; Start 10/29/18 at 09:00; Status UNV Multivitamins/ Minerals (I-Shmuel) 1 tab DAILY PO Last administered on 10/30/18 08:20; Start 10/29/18 at 09:00 Miscellaneous (Lidoderm Patch Removal) 1 ea [facility] ; Start 10/28/18 at 21:00; Status Cancel Ondansetron HCl (Zofran) 4 mg PRN Q8HRS PRN IV NAUSEA/VOMITING; Start 10/28/18 at 15:45; Stop 10/29/18 at 15:44; Status UNV Fentanyl Citrate (Fentanyl 2ml Vial) 50 mcg PRN Q1HR PRN IV PAIN; Start at 15:45; Stop 10/29/18 at 15:44; Status DC Acetaminophen (Tylenol) 650 mg PRN Q4HRS PRN PO FEVER; Start 10/28/18 at 15:45 ; Stop 10/29/18 at 15:44; Status UNV Albuterol/ Ipratropium (Duoneb) 3 ml RTQID NEB Last administered on 10/29/18at 15:09; Start 10/28/18 at 16:00; Stop 10/29/18 at 15:59; Status DC Sodium Chloride 1,000 ml @ 75 mls/hr [id number] IV ; Start 10/29/18 at 06:00; Stop 10/29/18 at 06:00; Status DC Sodium Chloride 1,000 ml @ 75 mls/hr [id number] IV Last administered on at 17:22; Start 10/28/18 at 17:00; Stop 10/29/18 at 06:19; Status DC Guaifenesin (MUCINEX ER with DM) 1 tab BID PO Last administered on 10/30/18at 08 :23; Start 10/28/18 at 21:00 Potassium Chloride (Klor-Con) 20 meq 1X ONCE PO Last administered on at 16:32; Start 10/29/18 at 16:00; Stop 10/29/18 at 16:01; Status DC Magnesium Sulfate 50 ml @ 25 mls/hr 1X ONCE IV Last administered on 10/29/18at 16:32; Start 10/29/18 at 16:00; Stop 10/29/18 at 17:59; Status DC Albuterol/ Ipratropium (Duoneb) 3 ml RTQID NEB Last administered on 10/30/18at 07:51; Start 10/29/18 at 20:00 Active Scripts Active Toprol Xl (Metoprolol Succinate) 50 Mg Tab.er.24h 50 Mg PO DAILY Lasix (Furosemide) 20 Mg Tablet 20 Mg PO DAILY 30 Days Reported Losartan Potassium 50 Mg Tablet 50 Mg PO DAILY Levothyroxine Sodium 75 Mcg Tablet 1 Tab PO DAILY Co Q-10 50 Mg Softgel (Ubidecarenone/Vitamin E) 1 Each Capsule 1 Each PO DAILY Preservision Areds Tablet (Vit A/Vit C/Vit E/Zinc/Copper) 1 Each Tablet 1 Each PO DAILY Digoxin 125 Mcg Tablet 1 Tab PO DAILY Potassium Chloride 10 Meq Capsule.er 10 Meq PO DAILY Vitals/I & O Vital Sign - Last 24 Hours 10/29/18 10/29/18 10/29/18 10/29/18 11:00 13:01 15:00 15:11 Temp 98.3 98.5 98.3 98.5 Pulse 69 73 Resp 16 16 B/P (MAP) 110/56 (74) 137/61 (86) Pulse Ox 93 95 O2 Delivery Room Air Room Air Room Air Room Air 10/29/18 10/29/18 10/29/18 10/29/18 19:00 19:59 20:00 23:00 Temp 98.4 99.0 98.4 99.0 Pulse 75 80 Resp 20 20 B/P (MAP) 146/58 (87) 138/61 (86) Pulse Ox 95 95 94 O2 Delivery Room Air Room Air Room Air Room Air 10/30/18 10/30/18 10/30/18 10/30/18 03:02 07:00 07:51 08:00 Temp 98.7 99.0 98.7 99.0 Pulse 70 72 Resp 20 16 B/P (MAP) 154/57 (89) 158/64 (95) Pulse Ox 94 92 93 O2 Delivery Room Air Room Air Room Air Room Air 10/30/18 10/30/18 10/30/18 08:21 08:21 08:23 Pulse 70 70 70 B/P (MAP) 154/57 154/57 154/57 Intake and Output 10/29/18 10/29/18 10/30/18 14:59 22:59 06:59 Output Total 0 ml Balance 0 ml MILY HERNANDEZ III DO Oct 30, 2018 10:43
[2018-10-30 11:00] VITALS: BP 138/63
[2018-10-30] MEDS ORDERED: ASPIRIN CHEWABLE 81 MG TABLET. PO SCH (11:00)
[2018-10-30] MEDS: AMOXICILLIN/K CLAV 500/125MG TABLET. PO SCH ×2 (11:14→21:06)
[2018-10-30] MEDS: ASPIRIN ENTERIC COATED 81 MG TABLET.DR. PO SCH (11:14)
[2018-10-30] MEDS: LACTOBACILLUS RHAMNOSUS GG 1 CAPSULE. PO SCH ×2 (11:14→21:06)
--- NOTE | 2018-10-30 12:00 | NUR ---
SW responding to a referral regarding SNU. Chart reviewed and discussed with Physician. PT/OT recommends SNU. Spoke with pt, pt's and family friend in room. Pt chose [facility] and stated she has been there in the past. Pt also stated she uses [facility] at home. [facility] CaptainIngrid will fax clinicals to [facility]. Will continue to follow.
[2018-10-30 15:00] VITALS: BP 139/61
--- NOTE | 2018-10-30 15:59 | NUR ---
SW following pt. Spoke with Radha at [facility] and she reported she is reviewing clinicals. Radha stated she is not sure they will have a bed until tomorrow morning. Discussed with pt at bedside about considering other options in case [facility] does not have a bed. Pt stated she does not have a preference and is agreeable with [facility]. SW phoned and faxed clinicals to [facility]. Pt admission and acceptance pending. Will continue to follow.
[2018-10-30 19:00] VITALS: BP 132/63
[2018-10-30 23:00] VITALS: BP 152/70
[2018-10-31 03:00] VITALS: BP 151/67
[2018-10-31] MEDS: LEVOTHYROXINE 75 MCG TABLET PO SCH (05:22)
[2018-10-31 06:19] LABS: BASO % 0 % (0-3); EOS # 0.2 x10^3/uL (0.0-0.7); EOS % 2 % (0-3); HEMATOCRIT 34.2 % (36.0-47.0); HEMOGLOBIN 11.7 g/dL (12.0-15.5); LYMPH # 1.9 x10^3/uL (1.0-4.8); LYMPH % 19 % (24-48); MEAN CORPUSCULAR HEMOGLOBIN 32 pg (25-35); MEAN CORPUSCULAR HGB CONC 34 g/dL (31-37); MEAN CORPUSCULAR VOLUME 93 fL (79-100); MONO # 1.2 x10^3/uL (0.0-1.1); MONO % 12 % (0-9); NEUT % 67 % (31-73); PLATELET COUNT 341 x10^3/uL (140-400); RED CELL DISTRIBUTION WIDTH 13.8 % (11.5-14.5); WHITE BLOOD COUNT 10.4 x10^3/uL (4.0-11.0)
[2018-10-31 06:37] LABS: ALBUMIN 2.4 g/dL (3.4-5.0); ALBUMIN/GLOBULIN RATIO 0.7 (1.0-1.7); CALCIUM 7.8 mg/dL (8.5-10.1); CREATININE 0.5 mg/dL (0.6-1.0); GFR 116.2; POTASSIUM 3.5 mmol/L (3.5-5.1); TOTAL PROTEIN 5.8 g/dL (6.4-8.2)
[2018-10-31 07:00] VITALS: BP 150/56
[2018-10-31] MEDS: IPRATRPIUM/ALBUTEROL 0.5/2.5MG 3 ML NEBU. NEB SCH ×2 (07:02→10:43)
[2018-10-31] MEDS: ASPIRIN ENTERIC COATED 81 MG TABLET.DR. PO SCH (08:00)
--- NOTE | 2018-10-31 08:23 | NUR ---
SW following pt. Spoke with El, PT who reported pt is doing so much better and can go home with home health. Pt walked 700ft with a walker yesterday. Spoke with Pt in room and discussed plan. SW informed pt she is able to go to [facility] or also go home with home health. Pt reported she will go home with home health and reported she has [facility]. Pt stated she will notify her family when they come to visit her. RN and Physician notified.
[2018-10-31] MEDS: AMOXICILLIN/K CLAV 500/125MG TABLET. PO SCH (09:44)
[2018-10-31] MEDS: LOSARTAN POTASSIUM 50 MG TABLET. PO SCH (09:45)
[2018-10-31] MEDS: POTASSIUM CHLORIDE 10 MEQ TABLET.ER. PO SCH (09:45)
[2018-10-31] MEDS: MULTIVITAMIN I-VITE TABLET. PO SCH (09:45)
[2018-10-31] MEDS: LACTOBACILLUS RHAMNOSUS GG 1 CAPSULE. PO SCH (09:45)
[2018-10-31] MEDS: guaiFENesin DM 600/30MG 1 TAB TAB.ER.12H PO SCH (09:46)
[2018-10-31] MEDS: DIGOXIN 125 MCG TABLET. PO SCH (09:46)
[2018-10-31] MEDS: FUROSEMIDE 20 MG TABLET PO SCH (09:46)
[2018-10-31] MEDS: METOPROLOL SUCC 24HR ER 50 MG TAB.ER.24H. PO SCH (09:47)
--- NOTE | 2018-10-31 10:48 | SNU/HH DC ---
DISCHARGE ORDERS DISCHARGE INFORMATION: FINAL DIAGNOSIS Problems Medical Problems: (1) Cough Status: Acute (2) Generalized weakness Status: Acute (3) Hypokalemia Status: Acute CONDITION ON DISCHARGE: Stable CODE STATUS: Code Status: Full CORRECTION: SNF STAY <30 DAYS: Yes HOSPICE: HOSPICE: No HOSPICE EVAL & TREAT: No POST DISCHARGE ORDERS: ACTIVITY ORDERS: Activity as tolerated, Bedrest today WEIGHT BEARING STATUS: Full weight bearing DIET AFTER DISCHARGE: Cardiac WOUND/INCISION CARE: Keep wound/cast CDI, No wound care needed CHECKS AFTER DISCHARGE: CHECKS AFTER DISCHARGE: Check blood press - daily, Check your Temp as needed TREATMENT/EQUIPMENT ORDERS: ADAPTIVE EQUIPMENT NEEDED: None Physical Therapy For: Evalulation/Treatment Occupational Therapy For: Evaluation/Treatment DISCHARGE MEDICATIONS: Home Meds Active Scripts Metoprolol Succinate (TOPROL XL) 50 Mg Tab.er.24h, 50 MG PO DAILY, #30 Prov:Paulina BOSE MD 03/26/16 Furosemide (LASIX) 20 Mg Tablet, 20 MG PO DAILY for 30 Days, TAB Prov:DOMINGO ECHOLS MD 07/11/15 Reported Medications Losartan Potassium (LOSARTAN POTASSIUM) 50 Mg Tablet, 50 MG PO DAILY, TAB 11/16/17 Levothyroxine Sodium (LEVOTHYROXINE SODIUM) 75 Mcg Tablet, 1 TAB PO DAILY, #30 TAB 5 Refills 05/26/17 Ubidecarenone/Vitamin E (CO Q-10 50 MG SOFTGEL) 1 Each Capsule, 1 EACH PO DAILY , CAP 05/26/17 Vit A/Vit C/Vit E/Zinc/Copper (PRESERVISION AREDS TABLET) 1 Each Tablet, 1 EACH PO DAILY, TAB 05/26/17 Digoxin (DIGOXIN) 125 Mcg Tablet, 1 TAB PO DAILY, #30 TAB 5 Refills 05/26/17 Potassium Chloride (POTASSIUM CHLORIDE) 10 Meq Capsule.er, 10 MEQ PO DAILY, TAB.SR 03/26/16 Discontinued Reported Medications Amiodarone Hcl (AMIODARONE HCL) 200 Mg Tablet, 1 TAB PO DAILY, #90 TAB 1 Refill 05/26/17 MILY HERNANDEZ III, DO Oct 31, 2018 10:48
--- NOTE | 2018-10-31 10:55 | SNU/HH DC ---
DISCHARGE WITH HOME HEALTH DISCHARGE INFORMATION: Final Diagnosis: Problems Medical Problems: (1) Cough Status: Acute (2) Generalized weakness Status: Acute (3) Hypokalemia Status: Acute Condition on Discharge: Stable CODE STATUS: Code Status: Full HOME HEALTH: Face to Face: I certify this patient is under my care and that I, or a nurse practitioner or physician's faculty research assistant working with me, had a face to face encounter that meets the physician face to face encounter requirements with this patient on []. Medical Complications: Dementia Physical Therapy For: Evalulation/Treatment Occupational Therapy For: Evaluation/Treatment Home Health Aide For: Self-care PRODUCER DIRECTOR For: Community Resources POST DISCHARGE ORDERS: Activity Instructions for Disc: Activity as tolerated, Bedrest today Weight Bearing Status after Di: Full weight bearing DIET AFTER DISCHARGE: Cardiac Wound/Incision Care: Keep wound/cast CDI, No wound care needed CHECKS AFTER DISCHARGE: Checks after discharge: Check blood press - daily, Check your Temp as needed TREATMENT/EQUIPMENT ORDERS: Adaptive Equipment Issued: None CERTIFICATION STATEMENT: Certification Statement: Certification Statement: Based on the above finding, I certify that this patient is confined to the home and needs intermittent halfway care, physical therapy and/or speech therapy, or continues to need occupational therapy.~ This patient is under my care, and I have initiated the establishment of the plan of care.~ This patient will be followed by myself or a community physician who will periodically review the plan of care. Home Meds Active Scripts Metoprolol Succinate (TOPROL XL) 50 Mg Tab.er.24h, 50 MG PO DAILY, #30 Prov:Paulina BOSE MD 03/26/16 Furosemide (LASIX) 20 Mg Tablet, 20 MG PO DAILY for 30 Days, TAB Prov:DOMINGO ECHOLS MD 07/11/15 Reported Medications Losartan Potassium (LOSARTAN POTASSIUM) 50 Mg Tablet, 50 MG PO DAILY, TAB 11/16/17 Levothyroxine Sodium (LEVOTHYROXINE SODIUM) 75 Mcg Tablet, 1 TAB PO DAILY, #30 TAB 5 Refills 05/26/17 Ubidecarenone/Vitamin E (CO Q-10 50 MG SOFTGEL) 1 Each Capsule, 1 EACH PO DAILY , CAP 05/26/17 Vit A/Vit C/Vit E/Zinc/Copper (PRESERVISION AREDS TABLET) 1 Each Tablet, 1 EACH PO DAILY, TAB 05/26/17 Digoxin (DIGOXIN) 125 Mcg Tablet, 1 TAB PO DAILY, #30 TAB 5 Refills 05/26/17 Potassium Chloride (POTASSIUM CHLORIDE) 10 Meq Capsule.er, 10 MEQ PO DAILY, TAB.SR 03/26/16 Discontinued Reported Medications Amiodarone Hcl (AMIODARONE HCL) 200 Mg Tablet, 1 TAB PO DAILY, #90 TAB 1 Refill 05/26/17 MILY HERNANDEZ III DO Oct 31, 2018 10:55
[2018-10-31 11:00] VITALS: BP 138/75
--- NOTE | 2018-10-31 11:17 | PDOC ---
PROGRESS NOTES Chief Complaint Chief Complaint Cough x2 weeks Weakness Hypokalemia Hyponatremia (resolved) Leukocytosis (resolved) AFib CHF HTN HLD OA Hypothyroid History of Present Illness History of Present Illness Pt was seen and examined in room this morning She was resting in chair with NAD, had a bed alarm in place Pt thanked us many times for assistance with her care She had no further complaints today We discussed case with RN Vitals Vitals Vital Signs Date Time Temp Pulse Resp B/P (MAP) Pulse Ox O2 Delivery O2 Flow Rate FiO2 10/31/18 10:44 Room Air 10/31/18 09:47 73 150/56 10/31/18 07:02 95 10/31/18 07:00 97.8 18 97.8 Physical Exam General: Alert, Oriented X3, No acute distress Heart: No murmurs, Other (irregular rhythm) Lungs: Clear Abdomen: Normal bowel sounds, Soft Extremities: No clubbing, No cyanosis, No edema, Normal pulses, No tenderness/ swelling Skin: No rashes, No breakdown Labs LABS Laboratory Tests Test 10/31/18 05:35 White Blood Count 10.4 x10^3/uL (4.0-11.0) Red Blood Count 3.70 x10^6/uL (3.50-5.40) Hemoglobin 11.7 g/dL (12.0-15.5) Hematocrit 34.2 % (36.0-47.0) Mean Corpuscular Volume 93 fL (79-100) Mean Corpuscular Hemoglobin 32 pg (25-35) Mean Corpuscular Hemoglobin Concent 34 g/dL (31-37) Red Cell Distribution Width 13.8 % (11.5-14.5) Platelet Count 341 x10^3/uL (140-400) Neutrophils (%) (Auto) 67 % (31-73) Lymphocytes (%) (Auto) 19 % (24-48) Monocytes (%) (Auto) 12 % (0-9) Eosinophils (%) (Auto) 2 % (0-3) Basophils (%) (Auto) 0 % (0-3) Neutrophils # (Auto) 7.0 x10^3uL (1.8-7.7) Lymphocytes # (Auto) 1.9 x10^3/uL (1.0-4.8) Monocytes # (Auto) 1.2 x10^3/uL (0.0-1.1) Eosinophils # (Auto) 0.2 x10^3/uL (0.0-0.7) Basophils # (Auto) 0.0 x10^3/uL (0.0-0.2) Sodium Level 136 mmol/L (136-145) Potassium Level 3.5 mmol/L (3.5-5.1) Chloride Level 99 mmol/L (98-107) Carbon Dioxide Level 30 mmol/L (21-32) Anion Gap 7 (6-14) Blood Urea Nitrogen 7 mg/dL (7-20) Creatinine 0.5 mg/dL (0.6-1.0) Estimated GFR (Cockcroft-Gault) 116.2 BUN/Creatinine Ratio 14 (6-20) Glucose Level 101 mg/dL (70-99) Calcium Level 7.8 mg/dL (8.5-10.1) Total Bilirubin 1.0 mg/dL (0.2-1.0) Aspartate Amino Transf (AST/SGOT) 12 U/L (15-37) Alanine Aminotransferase (ALT/SGPT) 18 U/L (14-59) Alkaline Phosphatase 51 U/L (46-116) Total Protein 5.8 g/dL (6.4-8.2) Albumin 2.4 g/dL (3.4-5.0) Albumin/Globulin Ratio 0.7 (1.0-1.7) Review of Systems Review of Systems Pt denies CP, SOB, NOVAK, n/v/d Assessment and Plan Assessmemt and Plan Problems Medical Problems: (1) Cough Status: Acute (2) Generalized weakness Status: Acute (3) Hypokalemia Status: Acute Assessment Acute CHF exacerbation Shortness of breath Hypoxia Htn DM2 controlled ESRD on HD mwf pafib on eliquis, carvedilol h/o left renal Ca s/p nephrectomy rt toe chronic wound s/p i and d Plan Possible D/C today PT recommending D/C home with home health- pt has Naseem TORRES set up Continue Augmentin for presumed CAP ECASA for stroke prevention Hypokalemia resolved, will monitor Hypomagnesemia resolved, will monitor Home meds PT/OT Appreciate cardiology recs Comment Review of Relevant I have reviewed the following items sanjay (where applicable) has been applied. Labs Laboratory Tests Test 10/30/18 05:50 10/31/18 05:35 White Blood Count 11.6 x10^3/uL (4.0-11.0) 10.4 x10^3/uL (4.0-11.0) Red Blood Count 4.00 x10^6/uL (3.50-5.40) 3.70 x10^6/uL (3.50-5.40) Hemoglobin 12.2 g/dL (12.0-15.5) 11.7 g/dL (12.0-15.5) Hematocrit 36.9 % (36.0-47.0) 34.2 % (36.0-47.0) Mean Corpuscular Volume 92 fL (79-100) 93 fL (79-100) Mean Corpuscular Hemoglobin 31 pg (25-35) 32 pg (25-35) Mean Corpuscular Hemoglobin Concent 33 g/dL (31-37) 34 g/dL (31-37) Red Cell Distribution Width 14.0 % (11.5-14.5) 13.8 % (11.5-14.5) Platelet Count 356 x10^3/uL (140-400) 341 x10^3/uL (140-400) Neutrophils (%) (Auto) 71 % (31-73) 67 % (31-73) Lymphocytes (%) (Auto) 17 % (24-48) 19 % (24-48) Monocytes (%) (Auto) 11 % (0-9) 12 % (0-9) Eosinophils (%) (Auto) 1 % (0-3) 2 % (0-3) Basophils (%) (Auto) 0 % (0-3) 0 % (0-3) Neutrophils # (Auto) 8.2 x10^3uL (1.8-7.7) 7.0 x10^3uL (1.8-7.7) Lymphocytes # (Auto) 2.0 x10^3/uL (1.0-4.8) 1.9 x10^3/uL (1.0-4.8) Monocytes # (Auto) 1.3 x10^3/uL (0.0-1.1) 1.2 x10^3/uL (0.0-1.1) Eosinophils # (Auto) 0.1 x10^3/uL (0.0-0.7) 0.2 x10^3/uL (0.0-0.7) Basophils # (Auto) 0.0 x10^3/uL (0.0-0.2) 0.0 x10^3/uL (0.0-0.2) Sodium Level 137 mmol/L (136-145) 136 mmol/L (136-145) Potassium Level 3.3 mmol/L (3.5-5.1) 3.5 mmol/L (3.5-5.1) Chloride Level 98 mmol/L (98-107) 99 mmol/L (98-107) Carbon Dioxide Level 30 mmol/L (21-32) 30 mmol/L (21-32) Anion Gap 9 (6-14) 7 (6-14) Blood Urea Nitrogen 11 mg/dL (7-20) 7 mg/dL (7-20) Creatinine 0.5 mg/dL (0.6-1.0) 0.5 mg/dL (0.6-1.0) Estimated GFR (Cockcroft-Gault) 116.2 116.2 BUN/Creatinine Ratio 22 (6-20) 14 (6-20) Glucose Level 93 mg/dL (70-99) 101 mg/dL (70-99) Calcium Level 8.0 mg/dL (8.5-10.1) 7.8 mg/dL (8.5-10.1) Magnesium Level 2.4 mg/dL (1.8-2.4) Total Bilirubin 0.9 mg/dL (0.2-1.0) 1.0 mg/dL (0.2-1.0) Aspartate Amino Transf (AST/SGOT) 12 U/L (15-37) 12 U/L (15-37) Alanine Aminotransferase (ALT/SGPT) 15 U/L (14-59) 18 U/L (14-59) Alkaline Phosphatase 59 U/L (46-116) 51 U/L (46-116) Total Protein 6.1 g/dL (6.4-8.2) 5.8 g/dL (6.4-8.2) Albumin 2.4 g/dL (3.4-5.0) 2.4 g/dL (3.4-5.0) Albumin/Globulin Ratio 0.6 (1.0-1.7) 0.7 (1.0-1.7) Laboratory Tests Test 10/31/18 05:35 White Blood Count 10.4 x10^3/uL (4.0-11.0) Red Blood Count 3.70 x10^6/uL (3.50-5.40) Hemoglobin 11.7 g/dL (12.0-15.5) Hematocrit 34.2 % (36.0-47.0) Mean Corpuscular Volume 93 fL (79-100) Mean Corpuscular Hemoglobin 32 pg (25-35) Mean Corpuscular Hemoglobin Concent 34 g/dL (31-37) Red Cell Distribution Width 13.8 % (11.5-14.5) Platelet Count 341 x10^3/uL (140-400) Neutrophils (%) (Auto) 67 % (31-73) Lymphocytes (%) (Auto) 19 % (24-48) Monocytes (%) (Auto) 12 % (0-9) Eosinophils (%) (Auto) 2 % (0-3) Basophils (%) (Auto) 0 % (0-3) Neutrophils # (Auto) 7.0 x10^3uL (1.8-7.7) Lymphocytes # (Auto) 1.9 x10^3/uL (1.0-4.8) Monocytes # (Auto) 1.2 x10^3/uL (0.0-1.1) Eosinophils # (Auto) 0.2 x10^3/uL (0.0-0.7) Basophils # (Auto) 0.0 x10^3/uL (0.0-0.2) Sodium Level 136 mmol/L (136-145) Potassium Level 3.5 mmol/L (3.5-5.1) Chloride Level 99 mmol/L (98-107) Carbon Dioxide Level 30 mmol/L (21-32) Anion Gap 7 (6-14) Blood Urea Nitrogen 7 mg/dL (7-20) Creatinine 0.5 mg/dL (0.6-1.0) Estimated GFR (Cockcroft-Gault) 116.2 BUN/Creatinine Ratio 14 (6-20) Glucose Level 101 mg/dL (70-99) Calcium Level 7.8 mg/dL (8.5-10.1) Total Bilirubin 1.0 mg/dL (0.2-1.0) Aspartate Amino Transf (AST/SGOT) 12 U/L (15-37) Alanine Aminotransferase (ALT/SGPT) 18 U/L (14-59) Alkaline Phosphatase 51 U/L (46-116) Total Protein 5.8 g/dL (6.4-8.2) Albumin 2.4 g/dL (3.4-5.0) Albumin/Globulin Ratio 0.7 (1.0-1.7) Microbiology 10/28/18 Blood Culture - Preliminary, Resulted NO GROWTH AFTER 2 DAYS Medications Current Medications Sodium Chloride 1,000 ml @ 1,000 mls/hr 1X ONCE IV Last administered on at 13:36; Start 10/28/18 at 13:30; Stop 10/28/18 at 14:29; Status DC Potassium Chloride (Klor-Con) 40 meq 1X ONCE PO Last administered on at 14:56; Start 10/28/18 at 14:45; Stop 10/28/18 at 14:46; Status DC Albuterol/ Ipratropium (Duoneb) 3 ml 1X ONCE NEB ; Start 10/28/18 at 15:00; Stop 10/28/18 at 15:01; Status DC Hydralazine HCl (Apresoline Inj) 10 mg PRN Q4HRS PRN IVP ELEVATED BP, SEE COMMENTS; Start 10/28/18 at 15:00 Acetaminophen (Tylenol) 500 mg PRN Q6HRS PRN PO MILD PAIN / TEMP; Start at 15:00 Ondansetron HCl (Zofran) 4 mg PRN Q6HRS PRN IV NAUSEA/VOMITING; Start 10/28/18 at 15:00 Ondansetron HCl (Zofran Odt) 4 mg PRN Q6HRS PRN PO NAUSEA/VOMITING; Start 10/28 at 15:00 Sodium Chloride 1,000 ml @ 75 mls/hr 1X ONCE IV Last administered on at 16:36; Start 10/28/18 at 16:00; Stop 10/28/18 at 16:45; Status DC Amiodarone HCl (Cordarone) 200 mg DAILY PO ; Start 10/28/18 at 15:30; Stop 10/28 at 16:39; Status DC Digoxin (Lanoxin) 125 mcg DAILY PO Last administered on 10/31/18 09:46; Start 10/28/18 at 16:00 Furosemide (Lasix) 20 mg DAILY PO Last administered on 10/31/18 09:46; Start 10/28/18 at 15:30 Levothyroxine Sodium (Synthroid) 75 mcg DAILY06 PO Last administered on 05:22; Start 10/29/18 at 06:00 Losartan Potassium (Cozaar) 50 mg DAILY PO Last administered on 10/31/18 09:45 ; Start 10/28/18 at 16:00 Potassium Chloride (Klor-Con) 10 meq DAILY PO Last administered on 10/31/18 09 :45; Start 10/29/18 at 09:00 Lidocaine (Lidoderm) 1 patch DAILY TD ; Start 10/28/18 at 15:30; Stop 10/28/18 at 16:39; Status DC Metoprolol Succinate (Toprol Xl) 50 mg DAILY PO Last administered on 10/31/18 09:47; Start 10/28/18 at 16:00 Non-Formulary Medication (Ubidecarenone/ Vitamin E (Co Q-10 50 Mg Softgel)) 1 each DAILY PO ; Start 10/29/18 at 09:00; Status UNV Multivitamins/ Minerals (I-Shmuel) 1 tab DAILY PO Last administered on 10/31/18at 09:45; Start 10/29/18 at 09:00 Miscellaneous (Lidoderm Patch Removal) 1 ea QHS MC ; Start 10/28/18 at 21:00; Status Cancel Ondansetron HCl (Zofran) 4 mg PRN Q8HRS PRN IV NAUSEA/VOMITING; Start 10/28/18 at 15:45; Stop 10/29/18 at 15:44; Status UNV Fentanyl Citrate (Fentanyl 2ml Vial) 50 mcg PRN Q1HR PRN IV PAIN; Start at 15:45; Stop 10/29/18 at 15:44; Status DC Acetaminophen (Tylenol) 650 mg PRN Q4HRS PRN PO FEVER; Start 10/28/18 at 15:45 ; Stop 10/29/18 at 15:44; Status UNV Albuterol/ Ipratropium (Duoneb) 3 ml RTQID NEB Last administered on 10/29/18at 15:09; Start 10/28/18 at 16:00; Stop 10/29/18 at 15:59; Status DC Sodium Chloride 1,000 ml @ 75 mls/hr [id number] IV ; Start 10/29/18 at 06:00; Stop 10/29/18 at 06:00; Status DC Sodium Chloride 1,000 ml @ 75 mls/hr [id number] IV Last administered on at 17:22; Start 10/28/18 at 17:00; Stop 10/29/18 at 06:19; Status DC Guaifenesin (MUCINEX ER with DM) 1 tab BID PO Last administered on 10/31/18at 09 :46; Start 10/28/18 at 21:00 Potassium Chloride (Klor-Con) 20 meq 1X ONCE PO Last administered on at 16:32; Start 10/29/18 at 16:00; Stop 10/29/18 at 16:01; Status DC Magnesium Sulfate 50 ml @ 25 mls/hr 1X ONCE IV Last administered on 10/29/18at 16:32; Start 10/29/18 at 16:00; Stop 10/29/18 at 17:59; Status DC Albuterol/ Ipratropium (Duoneb) 3 ml RTQID NEB Last administered on 10/31/18at 10:43; Start 10/29/18 at 20:00 Amoxicillin/ Clavulanate Potassium (Augmentin 500/ 125mg) 1 tab BID PO Last administered on 10/31/18at 09:44; Start 10/30/18 at 11:00 Aspirin (Children'S Aspirin) 81 mg DAILYWBKFT PO ; Start 10/30/18 at 11:00; Stop 10/30/18 at 11:00; Status DC Lactobacillus Rhamnosus (Culturelle) 1 cap BID PO Last administered on at 09:45; Start 10/30/18 at 11:00 Aspirin (Ecotrin) 81 mg DAILYWBKFT PO Last administered on 10/30/18at 11:14; Start 10/30/18 at 11:30 Active Scripts Active Toprol Xl (Metoprolol Succinate) 50 Mg Tab.er.24h 50 Mg PO DAILY Lasix (Furosemide) 20 Mg Tablet 20 Mg PO DAILY 30 Days Reported Losartan Potassium 50 Mg Tablet 50 Mg PO DAILY Levothyroxine Sodium 75 Mcg Tablet 1 Tab PO DAILY Co Q-10 50 Mg Softgel (Ubidecarenone/Vitamin E) 1 Each Capsule 1 Each PO DAILY Preservision Areds Tablet (Vit A/Vit C/Vit E/Zinc/Copper) 1 Each Tablet 1 Each PO DAILY Digoxin 125 Mcg Tablet 1 Tab PO DAILY Potassium Chloride 10 Meq Capsule.er 10 Meq PO DAILY Vitals/I & O Vital Sign - Last 24 Hours 10/30/18 10/30/18 10/30/18 10/30/18 11:23 15:00 15:47 19:00 Temp 98.0 99.7 98.0 99.7 Pulse 75 78 Resp 16 16 B/P (MAP) 139/61 (87) 132/63 (86) Pulse Ox 93 95 93 O2 Delivery Room Air Room Air Room Air Room Air 10/30/18 10/30/18 10/30/18 10/31/18 19:49 19:58 23:00 03:00 Temp 98.7 98.3 98.7 98.3 Pulse 75 69 Resp 16 16 B/P (MAP) 152/70 (97) 151/67 (95) Pulse Ox 93 96 94 O2 Delivery Room Air Room Air Room Air Room Air 10/31/18 10/31/18 10/31/18 10/31/18 07:00 07:02 09:45 09:46 Temp 97.8 97.8 Pulse 73 73 73 Resp 18 B/P (MAP) 150/56 (87) 150/56 150/56 Pulse Ox 94 95 O2 Delivery Room Air Room Air 10/31/18 10/31/18 09:47 10:44 Pulse 73 B/P (MAP) 150/56 O2 Delivery Room Air Intake and Output 10/30/18 10/30/18 10/31/18 15:00 23:00 07:00 Intake Total 150 ml 120 ml Balance 150 ml 120 ml Nutrition Consultation Dietary Evaluation: Recommendations by RD: Increase Calorie Intake, Protein supplementation Comments: ensure enlive q day Expected Outcomes/Goals: to meet > 75% est nutr needs Interpretation of weight loss: >20% in 1 year Malnutrition Findings: Body Fat Depletion (Non Severe: Mild Depletion Weight Status: Underweight MILY HERNANDEZ III DO Oct 31, 2018 11:17
--- NOTE | 2018-10-31 11:20 | NUR ---
WERNER following pt. WERNER phoned and faxed resumption orders to [facility]. Pt's choice and rights forms signed by pt and copies placed on chart. Pt and pt's family in room and agrees with dc plan. Pt's family able to take pt home. Discussed with RN. Addendum: 10/31/18 at 1252 by GABRIEL CALDERA WERNER phoned and faxed nebulizer order to [facility]. Rosa at [facility] reported they will contact pt later and deliver to pt's home today. Pt's daughter stated they will refill the medication at Pharmacy. WERNER provided pt's daughter with [facility] information. WERNER notified Pt, [facility] does not have a Respiratory Therapy and pt stated she will manage without RT. Spoke with Gabriel at [facility], they can have a nurse show pt how to do breathing treatments. RN notified.
[2018-10-31] MEDS ORDERED: AMOX1TAB61 PO (12:09)
[2018-10-31] MEDS ORDERED: IPRA3AMP29 NEB (12:12)
--- NOTE | 2018-10-31 13:51 | DS ---
DATE OF DISCHARGE: 10/31/2018 ADMISSION DIAGNOSES: Weakness, cough and hypokalemia. DISCHARGE DIAGNOSES: Resolving weakness, cough; resolving hypokalemia; probable early dementia. CONSULTS: None. PROCEDURES: None. HOSPITAL COURSE: The patient is a pleasant 88-year-old female who presented with generalized weakness, cough and hypokalemia. She was admitted. We gave her fluids, antitussives, replaced her potassium. Over the past couple of days, she is doing better. I saw her this morning, her heart tones were normal. Her lungs were clear. We plan to discharge to group home. DISPOSITION: Skilled. ACTIVITY: As tolerated. DIET: Low sodium. MEDICATIONS: Please see the MRAD. TOTAL TIME: 33 minutes. MILY HERNANDEZ DO DR: JEEVAN/windy JOB#: [id number] / [id number]
--- NOTE | 2018-10-31 13:54 | NUR ---
Discharge teaching provided written and verbal to pt,understanding verbalized. Dismissed to home with all belongings accompanied by her daughter and .
== END 2018-10-31 13:40 | disposition home health service (06) | DRG 640 ==
LOC: ER 13:03 → 5 NORTH 14:50
PROVIDERS: ADMIT Internal Medicine; ATTEND Internal Medicine
DX: E87.6 Hypokalemia (principal); N18.6 End stage renal disease; I13.2 Hypertensive heart and chronic kidney disease with heart failure and with stage 5 chronic kidney disease, or end stage renal disease; E44.0 Moderate protein-calorie malnutrition; I50.32 Chronic diastolic (congestive) heart failure; Z68.1 Body mass index [BMI] 19.9 or less, adult; E87.1 Hypo-osmolality and hyponatremia; I48.2 Chronic atrial fibrillation; I25.10 Atherosclerotic heart disease of native coronary artery without angina pectoris; E03.9 Hypothyroidism, unspecified; E78.5 Hyperlipidemia, unspecified; M19.90 Unspecified osteoarthritis, unspecified site; M81.0 Age-related osteoporosis without current pathological fracture; Z90.710 Acquired absence of both cervix and uterus; D72.829 Elevated white blood cell count, unspecified; Z85.820 Personal history of malignant melanoma of skin; I49.5 Sick sinus syndrome; F03.90 Unspecified dementia, unspecified severity, without behavioral disturbance, psychotic disturbance, mood disturbance, and anxiety; E11.22 Type 2 diabetes mellitus with diabetic chronic kidney disease; Z85.528 Personal history of other malignant neoplasm of kidney; Z90.5 Acquired absence of kidney; Z99.2 Dependence on renal dialysis
CPT/HCPCS: 36415; 70450; 71045; 80048; 80053; 80307; 81001; 82553; 83690; 83735; 83880; 84439; 84443; 84481; 84484; 85025; 85610; 87040; 87077; 87205; 87804; 93005; 93306; 94640; 94760; 96360; J3475; J7030; J7620; 97110; 97530; 97535; 99285-25

== ENCOUNTER 2018-12-04 02:23 | Inpatient (IN) | payer MEDICARE ==
[~2018-12-04] VITALS: Ht 157.5 cm; Wt 40.0 kg
[~2018-12-04 02:23] MED LIST changes: +AMOX1TAB61 PO; +IPRA3AMP29 NEB
[2018-12-04 03:07] LABS: BASO % 0 % (0-3); EOS # 0.3 x10^3/uL (0.0-0.7); EOS % 3 % (0-3); HEMATOCRIT 40.9 % (36.0-47.0); HEMOGLOBIN 13.9 g/dL (12.0-15.5); LYMPH # 3.4 x10^3/uL (1.0-4.8); LYMPH % 35 % (24-48); MEAN CORPUSCULAR HEMOGLOBIN 32 pg (25-35); MEAN CORPUSCULAR HGB CONC 34 g/dL (31-37); MEAN CORPUSCULAR VOLUME 93 fL (79-100); MONO # 0.8 x10^3/uL (0.0-1.1); MONO % 8 % (0-9); NEUT # 5.2 x10^3uL (1.8-7.7); NEUT % 54 % (31-73); PLATELET COUNT 263 x10^3/uL (140-400); RED CELL DISTRIBUTION WIDTH 14.6 % (11.5-14.5); WHITE BLOOD COUNT 9.8 x10^3/uL (4.0-11.0)
[2018-12-04 03:08] LABS: CALCIUM 8.8 mg/dL (8.5-10.1); CREATININE 0.7 mg/dL (0.6-1.0); GFR 78.8
[2018-12-04 03:14] LABS: ALBUMIN 3.6 g/dL (3.4-5.0); TOTAL BILIRUBIN 0.6 mg/dL (0.2-1.0); TOTAL PROTEIN 7.3 g/dL (6.4-8.2)
--- NOTE | 2018-12-04 03:20 | PHYS DOC ---
Past Medical History Past Medical History: A-Fib, CAD, Cancer, Heart Disease, Hypertension, Hypothyroid, Other Additional Past Medical Histor: PPM WITH AICD Past Surgical History: Cholecystectomy, Hysterectomy, Pacemaker Additional Past Surgical Histo: Bilat.shoulder surgery, MOLE REMOVAL Alcohol Use: None Drug Use: None Adult General Chief Complaint Chief Complaint: CHEST PAIN [facility] HPI Patient is a 88 year old female who presents with acute onset L sharp chest pain lasted about one hour total. Pt states that she does not know when the pain started, but she was sleeping when she awoke to sharp pain in her L chest. She called EMS services who brought her to the ED. She was given 4 baby aspirin during transport. She reports the pain appears to have resolved in the ED. She denies radiation of the pain to shoulder, arm or jaw. She reports a significant cardiac history with PFO repair in 2017, pacemaker with defibrillator placed for A-fib and a OH several years ago. She states that this episode of pain does not feel like her OH. She denies SOB, pain with deep inspiration, n/v/f/c, abdominal symptoms, hematuria, dysuria, change in bowel habits and blood per rectum. [] Review of Systems Review of Systems Constitutional: Denies fever or chills [] Eyes: Denies change in visual acuity, redness, or eye pain [] HENT: Denies nasal congestion or sore throat [] Respiratory: mild sob now resolved Cardiovascular: No additional information not addressed in HPI [] GI: Denies abdominal pain, nausea, vomiting, bloody stools or diarrhea [] : Denies dysuria or hematuria [] Musculoskeletal: Denies back pain or joint pain [] Integument: Denies rash or skin lesions [] Neurologic: Denies headache, focal weakness or sensory changes [] Endocrine: Denies polyuria or polydipsia [] All other systems were reviewed and found to be within normal limits, except as documented in this note. Current Medications Current Medications see med list Allergies Allergies Allergies Coded Allergies Type Severity Reaction Last Updated Verified bacitracin Allergy Intermediate Rash 06/02/17 Yes polymyxin B Allergy Intermediate Rash 06/02/17 Yes zolpidem Adverse Reaction Intermediate 06/03/17 Yes Physical Exam Physical Exam Constitutional: Well developed, thin, no acute distress, non-toxic appearance. [] HENT: Normocephalic, atraumatic, bilateral external ears normal, oropharynx moist, no oral exudates, nose normal. [] Eyes: PERRLA, EOMI, conjunctiva normal, no discharge. [] Neck: Normal range of motion, no tenderness, supple, no stridor. [] Cardiovascular:Heart rate regular rhythm, no murmur, rubs, gallops. Non-tender to palpation anterior and b/l axillary chest wall[] Lungs & Thorax: Bilateral breath sounds clear to auscultation, no wheezes, rales or crackles [] Abdomen: Bowel sounds normal, soft, no tenderness, no masses, no pulsatile masses. [] Skin: Warm, dry, erythematous, non purulent, 3x2 inch squared mildly inflamed rash present on L-axillary flank. Multiple seborrheic keratosis present on back [] Back: No tenderness, no CVA tenderness. [] Extremities: No tenderness, no cyanosis, no clubbing, ROM intact, no edema. [] Neurologic: Alert and oriented X 3, normal motor function, normal sensory function, no focal deficits noted. [] Psychologic: Affect normal, judgement normal, mood normal. [] Current Patient Data Vital Signs Vital Signs Date Time Temp Pulse Resp B/P (MAP) Pulse Ox O2 Delivery O2 Flow Rate FiO2 12/04/18 02:42 98.3 69 21 225/93 (137) 96 Room Air 98.3 Lab Values Laboratory Tests Test 12/04/18 02:31 White Blood Count 9.8 x10^3/uL (4.0-11.0) Red Blood Count 4.40 x10^6/uL (3.50-5.40) Hemoglobin 13.9 g/dL (12.0-15.5) Hematocrit 40.9 % (36.0-47.0) Mean Corpuscular Volume 93 fL (79-100) Mean Corpuscular Hemoglobin 32 pg (25-35) Mean Corpuscular Hemoglobin Concent 34 g/dL (31-37) Red Cell Distribution Width 14.6 % (11.5-14.5) H Platelet Count 263 x10^3/uL (140-400) Neutrophils (%) (Auto) 54 % (31-73) Lymphocytes (%) (Auto) 35 % (24-48) Monocytes (%) (Auto) 8 % (0-9) Eosinophils (%) (Auto) 3 % (0-3) Basophils (%) (Auto) 0 % (0-3) Neutrophils # (Auto) 5.2 x10^3uL (1.8-7.7) Lymphocytes # (Auto) 3.4 x10^3/uL (1.0-4.8) Monocytes # (Auto) 0.8 x10^3/uL (0.0-1.1) Eosinophils # (Auto) 0.3 x10^3/uL (0.0-0.7) Basophils # (Auto) 0.0 x10^3/uL (0.0-0.2) Prothrombin Time 13.0 SEC (11.7-14.0) Prothrombin Time INR 1.0 (0.8-1.1) Sodium Level 140 mmol/L (136-145) Potassium Level 3.0 mmol/L (3.5-5.1) L Chloride Level 102 mmol/L (98-107) Carbon Dioxide Level 30 mmol/L (21-32) Anion Gap 8 (6-14) Blood Urea Nitrogen 17 mg/dL (7-20) Creatinine 0.7 mg/dL (0.6-1.0) Estimated GFR (Cockcroft-Gault) 78.8 BUN/Creatinine Ratio 24 (6-20) H Glucose Level 104 mg/dL (70-99) H Calcium Level 8.8 mg/dL (8.5-10.1) Total Bilirubin 0.6 mg/dL (0.2-1.0) Aspartate Amino Transferase (AST) 12 U/L (15-37) L Alanine Aminotransferase (ALT) 14 U/L (14-59) Alkaline Phosphatase 49 U/L (46-116) Troponin I Quantitative < 0.017 ng/mL (0.000-0.055) Total Protein 7.3 g/dL (6.4-8.2) Albumin 3.6 g/dL (3.4-5.0) Albumin/Globulin Ratio 1.0 (1.0-1.7) Laboratory Tests 12/04/18 02:31 Laboratory Tests 12/04/18 02:31 EKG EKG The patient rhythm rate 83 PVC present no obvious ischemia similar to October 28, 2018[] Radiology/Procedures Radiology/Procedures [] Impressions: My interpretation negative acute chest x-ray Course & Med Decision Making Course & Med Decision Making Pertinent Labs and Imaging studies reviewed. (See chart for details) Pt presents with chest pain with extensive history of cardiac pathology including AFIB (with cardioversion), CHF, HTN, Syncope, Hyperlipidemia, SSS/tachy-dominick syndrome, pacemaker placement in 2017 complicated by pericardial tamponade report a history of OH Pt does not demonstrate clinical signs and symptoms explicitly concerning for cardiac etiology, however, given her history, will do cardiac work up admitted for serial troponins and cardiology consult. CT PE protocol pending. [facility] [] BP WAS 225 SYSTOLIC ON ARRIVAL. GOT NITROPASTE DOWN TO 160'S , ASPIRIN PRIOR TO ARRIVAL Dragon Disclaimer Dragon Disclaimer This electronic medical record was generated, in whole or in part, using a voice recognition dictation system. Departure Departure Impression: Primary Impression: Chest pain Disposition: ADMITTED INPATIENT Admitting Physician: Meenu Christensen Condition: STABLE Referrals: AMANDO REYES MD (PCP) FREDERICK DVAIS MD Dec 04, 2018 03:20
[2018-12-04] MEDS ORDERED: NITROGLYCERIN OINT 1 GM PACKET. TP ONE (03:45)
[2018-12-04] MEDS ORDERED: CONTRAST GIVEN. MC PRN (04:00)
[2018-12-04] MEDS ORDERED: IOHEXOL 350 MG/ML 100 ML VIAL. IV ONE (04:00)
--- NOTE | 2018-12-04 04:37 | RAD ---
INDICATION: lt.sided chest pleuritic pain; eval for pe; Omni 350, 75ml COMPARISON: June 01, 2017 TECHNIQUE: Axial CT images obtained through the chest. Intravenous contrast utilized. Angiogram 3D images processed per protocol. One or more of the following individualized dose reduction techniques were utilized for this examination: 1. Automated exposure control; 2. Adjustment of the mA and/or kV according to patient size; 3. Use of iterative reconstruction technique. FINDINGS: There is some lucency and groundglass within the lung parenchyma bilaterally. There is some patchy nodular opacities within the bilateral lungs including the lower lungs. Hard and soft plaque is seen throughout the thoracic aorta. Aneurysmal dilatation of the a ascending thoracic aorta which measures up to 43 mm. Scattered mildly enlarged lymph nodes within the mediastinum. Degenerative changes the spine with multilevel central canal and neural foraminal stenosis. No central pulmonary embolus but limited peripherally by motion and small vessel size. Mild T11 compression deformity. IMPRESSION: Patchy opacities throughout the bilateral lungs including some nodular component. Could be infectious or inflammatory in nature but a follow-up should be obtained in a couple of months to ensure no growth to exclude neoplastic causes. Some of these regions are nodular and masslike appearance. Mixed regions of lucency and groundglass opacity in the lungs. Would chronic for possible causes such as air trapping from asthma or emphysema. The groundglass opacities could be from mild edema or small airway inflammation. Thoracic aortic aneurysm. No central pulmonary embolus but limited peripherally secondary to small vessel size. Electronically signed by: Jamshid Molina MD (12/04/2018 4:34 AM) [id number]
[2018-12-04 05:00] VITALS: BP 178/81
[2018-12-04] MEDS ORDERED: megestrol (05:13)
--- NOTE | 2018-12-04 06:40 | EKG ---
[facility] [address] [place] [id number] Test Date: 2018-12-04 Test Time: 02:31:55 Pat Name: ALYSIA PERES Department: Room: 201 1 Gender: F Floor Winder: : [id number] Requested By: FREDERICK DAVIS Order Number: [id number] Reading MD: Valente Garcia Measurements Intervals [place] Rate: 83 P: 90 MD: 238 QRS: -66 QRSD: 140 T: 99 QT: 402 QTc: 473 Interpretive Statements PROBABLE SINUS RHYTYHM V AND POSSIBLY A PACED Electronically Signed On 12-10-2018 11:29:08 CDT by Valente Garcia
[2018-12-04 07:00] VITALS: BP 115/76
--- NOTE | 2018-12-04 07:45 | RAD ---
Examination: PORTABLE CHEST 1V History: chest pain Comparison/Correlation: 10/28/2018 portable chest x-ray exam Findings: Portable upright frontal view chest was obtained. Dual-lead left-sided pacemaker is present. Heart size is borderline to slightly enlarged. No pneumothorax. Pulmonary vasculature is borderline. No focal consolidation. No significant or definite pleural effusion. No pneumothorax. Pulmonary hyperinflation appears be present. Levoconvex scoliosis of the low thoracic and upper lumbar spine noted. Impression: No active disease. Electronically signed by: Marc Hernandez MD (12/04/2018 7:42 AM) [facility]
[2018-12-04] MEDS ORDERED: ONDANSETRON ODT 4 MG TAB.RAPDIS. PO PRN (08:15)
[2018-12-04] MEDS ORDERED: ONDANSETRON PF 4 MG/2 ML VIAL. IV PRN (08:15)
[2018-12-04] MEDS ORDERED: ACETAMINOPHEN 500 MG TABLET PO PRN (08:15)
[2018-12-04] MEDS ORDERED: LABETALOL 20 MG/4 ML DISP.SYRIN. IVP PRN (08:15)
[2018-12-04] MEDS ORDERED: ACETAMINOPHEN/CODEINE 300/30MG TABLET. PO PRN (08:15)
--- NOTE | 2018-12-04 09:40 | PDOC1 ---
History and Physical Date of Admission Date of Admission DATE: 12/04/18 TIME: 09:35 Identification/Chief Complaint Chief Complaint left-sided chest pain-sharp Source Source: Caregiver, Chart review, Patient History of Present Illness History of Present Illness 88-year-old female who lives with , admitted because of pleuritic left-sided chest pain happened at rest at home. Duration would last from minutes to hours she describes as intermittent. At the time of ER arrival chest pain has resolved. She denied radiation to the shoulder arm or jaw. Nonsmoker. She does have history of AF she claims she is on digoxin and beta blockers Synthroid Lasix. There is a mention of history of repair PFO in 2017? Pacer with defibrillator for A. fib and PR several years ago. Labs okay except for mild hypokalemia 3.0 which is chronic for her. Chest x-ray shows some inflammatory changes on the lungs and she does admit that she has been coughing lately. No recent travels or sick contacts. Started appropriately on by mouth doxycycline by ER. No fevers, no white count. Past Medical History Cardiovascular: AFIB, CHF, HTN, Syncope, Hyperlipidemia Pulmonary: No pertinent hx Heme/Onc: No pertinent hx, Other Hepatobiliary: No pertinent hx Psych: No pertinent hx Musculoskeletal: Osteoarthritis Rheumatologic: No pertinent hx Infectious disease: No pertinent hx Renal/: No pertinent hx Endocrine: Hypothyroidism, Osteoporosis Past Surgical History Past Surgical History: Cholecystectomy, Tonsillectomy, Hysterectomy, Other Family History Family History: Hypertension, Other Social History Smoke: No ALCOHOL: none Drugs: None Current Medications Current Medications Current Medications Nitroglycerin (Nitro-Bid Oint) 1 inch 1X ONCE TP Last administered on 12/04/18at 04:20; Start 12/04/18 at 03:45; Stop 12/04/18 at 03:47; Status DC Iohexol (Omnipaque 350 Mg/ml) 75 ml 1X ONCE IV Last administered on 12/04/18at 03:48; Start 12/04/18 at 04:00; Stop 12/04/18 at 04:01; Status DC Info (CONTRAST GIVEN -- Rx MONITORING) 1 each PRN DAILY PRN MC SEE COMMENTS; Start 12/04/18 at 04:00; Stop 12/06/18 at 03:59 Doxycycline Hyclate (Vibra-Tab) 100 mg BID PO ; Start 12/04/18 at 09:00 Labetalol HCl (Normodyne Iv Push) 10 mg PRN Q2HR PRN IVP HYPERTENSION, SEE COMMENTS; Start 12/04/18 at 08:15 Acetaminophen (Tylenol) 500 mg PRN Q6HRS PRN PO HEADACHE / TEMP; Start 12/04/18 at 08:15 Acetaminophen/ Codeine Phosphate (Tylenol #3) 1 tab PRN Q6HRS PRN PO PAIN MILD; Start 12/04/18 at 08:15 Ondansetron HCl (Zofran) 4 mg PRN Q6HRS PRN IV NAUSEA/VOMITING; Start 12/04/18 at 08:15 Ondansetron HCl (Zofran Odt) 4 mg PRN Q6HRS PRN PO NAUSEA/VOMITING; Start 12/04/18 at 08:15 Digoxin (Lanoxin) 125 mcg DAILY PO ; Start 12/04/18 at 09:00 Furosemide (Lasix) 20 mg DAILY PO ; Start 12/04/18 at 09:00 Levothyroxine Sodium (Synthroid) 75 mcg DAILY07 PO ; Start 12/04/18 at 09:00 Losartan Potassium (Cozaar) 50 mg DAILY PO ; Start 12/04/18 at 09:00 Metoprolol Succinate (Toprol Xl) 50 mg DAILY PO ; Start 12/04/18 at 09:00 Active Scripts Active Toprol Xl (Metoprolol Succinate) 50 Mg Tab.er.24h 50 Mg PO DAILY Lasix (Furosemide) 20 Mg Tablet 20 Mg PO DAILY 30 Days Reported [megestrol] Losartan Potassium 50 Mg Tablet 50 Mg PO DAILY Levothyroxine Sodium 75 Mcg Tablet 1 Tab PO DAILY Digoxin 125 Mcg Tablet 1 Tab PO DAILY Allergies Allergies: Coded Allergies: bacitracin (Verified Allergy, Intermediate, Rash, 06/02/17) polymyxin B (Verified Allergy, Intermediate, Rash, 06/02/17) zolpidem (Verified Adverse Reaction, Intermediate, 06/03/17) Confusion/psychosis ROS Review of System As per history of present illness, the rest of ROS 14 point negative Physical Exam General: Alert, Oriented X3, Cooperative, No acute distress HEENT: Atraumatic, PERRLA Lungs: Normal air movement, Other (symmetrical chest expansion no crackles or wheezing, diminished breath sounds secondary to poor effort) Heart: S1S2, RRR, no thrills, no rubs, no gallops, no murmurs Cardiovascular: S1, S2 Breasts: Normal, Rt breast nml w/o mass, Lt breast nml w/o mass, Nipples normal Abdomen: Normal bowel sounds, Soft, No tenderness, No hepatosplenomegaly, No masses Rectal Exam: not examined PELVIC: Nml ext genitalia Extremities: No clubbing, No cyanosis, No edema, Normal pulses, No tenderness/swelling Skin: No rashes, No breakdown, No significant lesion Neuro: Normal gait, Normal speech, Strength at 5/5 X4 ext, Normal tone, Sensation intact, Cranial nerves 3-12 NL, Reflexes 2+ Psych/Mental Status: Mental status NL, Mood NL Vitals Vitals Vital Signs Date Time Temp Pulse Resp B/P (MAP) Pulse Ox O2 Delivery O2 Flow Rate FiO2 12/04/18 07:00 98.2 78 16 115/76 (89) 95 98.2 12/04/18 05:28 Room Air Labs Labs Laboratory Tests Test 12/04/18 02:31 White Blood Count 9.8 x10^3/uL (4.0-11.0) Red Blood Count 4.40 x10^6/uL (3.50-5.40) Hemoglobin 13.9 g/dL (12.0-15.5) Hematocrit 40.9 % (36.0-47.0) Mean Corpuscular Volume 93 fL (79-100) Mean Corpuscular Hemoglobin 32 pg (25-35) Mean Corpuscular Hemoglobin Concent 34 g/dL (31-37) Red Cell Distribution Width 14.6 % (11.5-14.5) Platelet Count 263 x10^3/uL (140-400) Neutrophils (%) (Auto) 54 % (31-73) Lymphocytes (%) (Auto) 35 % (24-48) Monocytes (%) (Auto) 8 % (0-9) Eosinophils (%) (Auto) 3 % (0-3) Basophils (%) (Auto) 0 % (0-3) Neutrophils # (Auto) 5.2 x10^3uL (1.8-7.7) Lymphocytes # (Auto) 3.4 x10^3/uL (1.0-4.8) Monocytes # (Auto) 0.8 x10^3/uL (0.0-1.1) Eosinophils # (Auto) 0.3 x10^3/uL (0.0-0.7) Basophils # (Auto) 0.0 x10^3/uL (0.0-0.2) Prothrombin Time 13.0 SEC (11.7-14.0) Prothromb Time International Ratio 1.0 (0.8-1.1) Sodium Level 140 mmol/L (136-145) Potassium Level 3.0 mmol/L (3.5-5.1) Chloride Level 102 mmol/L (98-107) Carbon Dioxide Level 30 mmol/L (21-32) Anion Gap 8 (6-14) Blood Urea Nitrogen 17 mg/dL (7-20) Creatinine 0.7 mg/dL (0.6-1.0) Estimated GFR (Cockcroft-Gault) 78.8 BUN/Creatinine Ratio 24 (6-20) Glucose Level 104 mg/dL (70-99) Calcium Level 8.8 mg/dL (8.5-10.1) Total Bilirubin 0.6 mg/dL (0.2-1.0) Aspartate Amino Transf (AST/SGOT) 12 U/L (15-37) Alanine Aminotransferase (ALT/SGPT) 14 U/L (14-59) Alkaline Phosphatase 49 U/L (46-116) Troponin I Quantitative < 0.017 ng/mL (0.000-0.055) FC-Enh-Q-Type Natriuretic Peptide 547 pg/mL (0-449) Total Protein 7.3 g/dL (6.4-8.2) Albumin 3.6 g/dL (3.4-5.0) Albumin/Globulin Ratio 1.0 (1.0-1.7) Laboratory Tests Test 12/04/18 02:31 White Blood Count 9.8 x10^3/uL (4.0-11.0) Red Blood Count 4.40 x10^6/uL (3.50-5.40) Hemoglobin 13.9 g/dL (12.0-15.5) Hematocrit 40.9 % (36.0-47.0) Mean Corpuscular Volume 93 fL (79-100) Mean Corpuscular Hemoglobin 32 pg (25-35) Mean Corpuscular Hemoglobin Concent 34 g/dL (31-37) Red Cell Distribution Width 14.6 % (11.5-14.5) Platelet Count 263 x10^3/uL (140-400) Neutrophils (%) (Auto) 54 % (31-73) Lymphocytes (%) (Auto) 35 % (24-48) Monocytes (%) (Auto) 8 % (0-9) Eosinophils (%) (Auto) 3 % (0-3) Basophils (%) (Auto) 0 % (0-3) Neutrophils # (Auto) 5.2 x10^3uL (1.8-7.7) Lymphocytes # (Auto) 3.4 x10^3/uL (1.0-4.8) Monocytes # (Auto) 0.8 x10^3/uL (0.0-1.1) Eosinophils # (Auto) 0.3 x10^3/uL (0.0-0.7) Basophils # (Auto) 0.0 x10^3/uL (0.0-0.2) Prothrombin Time 13.0 SEC (11.7-14.0) Prothromb Time International Ratio 1.0 (0.8-1.1) Sodium Level 140 mmol/L (136-145) Potassium Level 3.0 mmol/L (3.5-5.1) Chloride Level 102 mmol/L (98-107) Carbon Dioxide Level 30 mmol/L (21-32) Anion Gap 8 (6-14) Blood Urea Nitrogen 17 mg/dL (7-20) Creatinine 0.7 mg/dL (0.6-1.0) Estimated GFR (Cockcroft-Gault) 78.8 BUN/Creatinine Ratio 24 (6-20) Glucose Level 104 mg/dL (70-99) Calcium Level 8.8 mg/dL (8.5-10.1) Total Bilirubin 0.6 mg/dL (0.2-1.0) Aspartate Amino Transf (AST/SGOT) 12 U/L (15-37) Alanine Aminotransferase (ALT/SGPT) 14 U/L (14-59) Alkaline Phosphatase 49 U/L (46-116) Troponin I Quantitative < 0.017 ng/mL (0.000-0.055) GX-Cgq-D-Type Natriuretic Peptide 547 pg/mL (0-449) Total Protein 7.3 g/dL (6.4-8.2) Albumin 3.6 g/dL (3.4-5.0) Albumin/Globulin Ratio 1.0 (1.0-1.7) VTE Prophylaxis Ordered VTE Prophylaxis Devices: Yes VTE Pharmacological Prophylaxi: Yes Assessment/Plan Assessment/Plan Pleuritic chest pain Inflammatory lung changes on CT HX of repair PFO 2016 History of A. fib pacer defibrillator? - on BB digoxin, lasix at home Hypo-thyroidism on Synthroid Undernourished with a BMI 16 Hypokalemia chronic PLAN: CVC admit 2 midnight admit Cards consult I have reconciled home meds Replace potassium and recheck labs tmr Agree with by mouth Doxy Follow cards recommendations I opted not to recheck TSH T3-T4 PT.OT dw at bedside LORETTA LIN MD Dec 04, 2018 09:40
[2018-12-04] MEDS ORDERED: POTASSIUM CHLORIDE 20 MEQ TABLET.ER. PO ONE (09:45)
--- NOTE | 2018-12-04 10:25 | PDOC2 ---
АНДРЕЙ BUSCH TELEGRAPHIC TYPEWRITER MECHANIC 12/04/18 1025: CARDIAC CONSULT DATE OF CONSULT Date of Consult DATE: 12/04/18 TIME: 10:00 REASON FOR CONSULT Reason for Consult: chest pain REFERRING PHYSICIAN Referring Physician: Boni SOURCE Source: Chart review, Patient HISTORY OF PRESENT ILLNESS HISTORY OF PRESENT ILLNESS This is a pleasant 88 yo female admitted for complains of chest pain. Reports that she has been receiving [facility] and has been doing well. No chest pain, LEWIS associated with her activities and her tolerance has been improving. Last night she felt sharp discomfort to her left chest with some discomfort to her left arm lasting around 30 minutes and has not recurred. No nausea or vomiting. No jaw discomfort. No recent falls or injury. No diaphoresis. PAST MEDICAL HISTORY Past Medical History Cardiovascular: AFIB (with cardioversion), CHF, HTN, Syncope, Hyperlipidemia, SSS/tachy-dominick syndrome, pericardial tamponade, nonobstructive CAD Pulmonary: amiodarone lung injury, pulmonary HTN Heme/Onc: anemia with blood transfusion Hepatobiliary: No pertinent hx Psych: No pertinent hx Musculoskeletal: Osteoarthritis Rheumatologic: No pertinent hx Infectious disease: No pertinent hx ENT: macular degeneration Renal/: CKD Endocrine: Hypothyroidism, Osteoporosis Dermatology: Melanoma PAST SURGICAL HISTORY Past Surgical History LINQ placement and removal, PPM (biotronik), Cholecystectomy, Tonsillectomy, Hysterectomy, Other (melanoma removal), cataract removal, pericardiocentesis FAMILY HISTORY Family History noncontributory SOCIAL HISTORY Smoke: No ALCOHOL: none Drugs: None Lives: with Family CURRENT MEDICATIONS CURRENT MEDICATIONS Current Medications Medications (Trade) Dose Ordered Sig/Chikis Route PRN Reason Start Time Stop Time Status Last Admin Dose Admin Nitroglycerin (Nitro-Bid Oint) 1 inch 1X ONCE TP 12/04/18 03:45 12/04/18 03:47 DC 12/04/18 04:20 Iohexol (Omnipaque 350 Mg/ml) 75 ml 1X ONCE IV 12/04/18 04:00 12/04/18 04:01 DC 12/04/18 03:48 ALLERGIES ALLERGIES: Coded Allergies: bacitracin (Verified Allergy, Intermediate, Rash, 06/02/17) polymyxin B (Verified Allergy, Intermediate, Rash, 06/02/17) zolpidem (Verified Adverse Reaction, Intermediate, 10/21/17) Confusion/psychosis ROS Review of System 14 point ROS evaluated with pertinent positives noted per HPI PHYSICAL EXAM General: Alert, Oriented X3, Cooperative, No acute distress HEENT: Atraumatic, Mucous membr. moist/pink Lungs: Clear to auscultation, Normal air movement Heart: Regular rate (SR), Normal S1, Normal S2, Other (2/6 systolic murmur to LLs border) Abdomen: Soft, No tenderness Extremities: No cyanosis, No edema Skin: No breakdown, No significant lesion Neuro: Normal speech, Sensation intact Psych/Mental Status: Mental status NL, Mood NL MUSCULOSKELETAL: Osteoarthritic changes both hands VITALS VITALS Vital Signs Date Time Temp Pulse Resp B/P (MAP) Pulse Ox O2 Delivery O2 Flow Rate FiO2 12/04/18 08:00 Room Air 12/04/18 07:00 98.2 78 16 115/76 (89) 95 98.2 LABS Lab: Laboratory Tests Test 12/04/18 02:31 White Blood Count 9.8 x10^3/uL (4.0-11.0) Red Blood Count 4.40 x10^6/uL (3.50-5.40) Hemoglobin 13.9 g/dL (12.0-15.5) Hematocrit 40.9 % (36.0-47.0) Mean Corpuscular Volume 93 fL (79-100) Mean Corpuscular Hemoglobin 32 pg (25-35) Mean Corpuscular Hemoglobin Concent 34 g/dL (31-37) Red Cell Distribution Width 14.6 % (11.5-14.5) Platelet Count 263 x10^3/uL (140-400) Neutrophils (%) (Auto) 54 % (31-73) Lymphocytes (%) (Auto) 35 % (24-48) Monocytes (%) (Auto) 8 % (0-9) Eosinophils (%) (Auto) 3 % (0-3) Basophils (%) (Auto) 0 % (0-3) Neutrophils # (Auto) 5.2 x10^3uL (1.8-7.7) Lymphocytes # (Auto) 3.4 x10^3/uL (1.0-4.8) Monocytes # (Auto) 0.8 x10^3/uL (0.0-1.1) Eosinophils # (Auto) 0.3 x10^3/uL (0.0-0.7) Basophils # (Auto) 0.0 x10^3/uL (0.0-0.2) Prothrombin Time 13.0 SEC (11.7-14.0) Prothromb Time International Ratio 1.0 (0.8-1.1) Sodium Level 140 mmol/L (136-145) Potassium Level 3.0 mmol/L (3.5-5.1) Chloride Level 102 mmol/L (98-107) Carbon Dioxide Level 30 mmol/L (21-32) Anion Gap 8 (6-14) Blood Urea Nitrogen 17 mg/dL (7-20) Creatinine 0.7 mg/dL (0.6-1.0) Estimated GFR (Cockcroft-Gault) 78.8 BUN/Creatinine Ratio 24 (6-20) Glucose Level 104 mg/dL (70-99) Calcium Level 8.8 mg/dL (8.5-10.1) Total Bilirubin 0.6 mg/dL (0.2-1.0) Aspartate Amino Transf (AST/SGOT) 12 U/L (15-37) Alanine Aminotransferase (ALT/SGPT) 14 U/L (14-59) Alkaline Phosphatase 49 U/L (46-116) Troponin I Quantitative < 0.017 ng/mL (0.000-0.055) SI-Nvm-M-Type Natriuretic Peptide 547 pg/mL (0-449) Total Protein 7.3 g/dL (6.4-8.2) Albumin 3.6 g/dL (3.4-5.0) Albumin/Globulin Ratio 1.0 (1.0-1.7) ECHOCARDIOGRAM ECHOCARDIOGRAM <Conclusion> The left ventricular systolic function is normal and the ejection fraction is within normal range.The Ejection Fraction is 50-55%. Septal motion consistent with conduction abnormality. Otherwise grossly normal Pacer lead noted in RV/RA. Doppler and Color Flow revealed mild tricuspid regurgitation. There is moderate pulmonary hypertension. The PA pressure was estimated at 46 mmHg. DATE: 10/29/18 1546 HEART CATH HEART CATH Conclusion 1. Nonobstructive single-vessel coronary artery disease with 50-60% stenosis involving left anterior descending artery. 2. Normal left ventricular systolic function with ejection fraction estimated a t 55-60%. 3. No significant mitral regurgitation or aortic stenosis. Recommendations Medical management. DATE: 07/10/15 1119 ASSESSMENT/PLAN ASSESSMENT/PLAN 1. Atypical chest pain; possibly r/t to uncontrolled HTN and MSK 2. Accelerated HTN 3. 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 PAFIB: maintaining SR with episodes brief burst of AFIB 5. CKD3 6. Hypokalemia 7. Hx of amiodarone lung injury Recommendations Replace K+. Awaiting x1 trop, check Mg. Restart home BP meds. Encouraged HBPM bid for x1 wk and call if outside parameters. Will consider adding another toprol at hs. Biotronik to check PPM and note any AFIB RVR ECASA 81 mg for stroke prevention, poor candidate for chronic OAC Plan for outpt stress test. ANGELICA NESS MD 12/05/18 0950: CARDIAC CONSULT ASSESSMENT/PLAN ASSESSMENT/PLAN Patient seen and examined 12/04/18. Agree with MANAGED CARE COORDINATOR's assessment and plan. Chest pain with atypical features and most probably musculoskeletal Myocardial infarction has been ruled out Resume home antihypertensives and titrate for better blood pressure control Recent device check showed normal function We will consider ischemic evaluation as an outpatient Thank you for your consultation АНДРЕЙ BUSCH TELEGRAPHIC TYPEWRITER MECHANIC Dec 04, 2018 10:25 ANGELICA NESS MD Dec 05, 2018 09:50
[2018-12-04] MEDS: LEVOTHYROXINE 75 MCG TABLET PO SCH (10:37)
[2018-12-04] MEDS: FUROSEMIDE 20 MG TABLET PO SCH (10:37)
[2018-12-04] MEDS: DIGOXIN 125 MCG TABLET. PO SCH (10:38)
[2018-12-04] MEDS: LOSARTAN POTASSIUM 50 MG TABLET. PO SCH (10:39)
[2018-12-04] MEDS: METOPROLOL SUCC 24HR ER 50 MG TAB.ER.24H. PO SCH (10:39)
[2018-12-04] MEDS: DOXYCYCLINE HYCLATE 100 MG TABLET PO SCH ×2 (10:40→20:25)
[2018-12-04 10:52] VITALS: BP 168/113
--- NOTE | 2018-12-04 14:43 | NUR ---
SS following for discharge planning. SS reviewed pt chart. Pt is from home and is currently on room air. Pt has had previous services in the past with [facility] [place] and has had a nebulizer through [facility]. SS will continue to follow for discharge planning.
[2018-12-04 14:53] VITALS: BP 134/80
[2018-12-04 19:15] VITALS: BP 102/55
[2018-12-04] MEDS: LACTOBACILLUS RHAMNOSUS GG 1 CAPSULE. PO SCH (20:24)
[2018-12-04] MEDS: METOPROLOL SUCC 24HR ER 25 MG TAB.ER.24H. PO SCH ×2 (20:24→20:38)
[2018-12-04 23:00] VITALS: BP 154/80
[2018-12-05 03:00] VITALS: BP 176/86
[2018-12-05] MEDS: LEVOTHYROXINE 75 MCG TABLET PO SCH (06:08)
[2018-12-05 07:17] VITALS: BP 164/77
[2018-12-05] MEDS: FUROSEMIDE 20 MG TABLET PO SCH (08:26)
[2018-12-05] MEDS: DOXYCYCLINE HYCLATE 100 MG TABLET PO SCH (08:26)
[2018-12-05] MEDS: LACTOBACILLUS RHAMNOSUS GG 1 CAPSULE. PO SCH (08:26)
[2018-12-05] MEDS: DIGOXIN 125 MCG TABLET. PO SCH (08:27)
[2018-12-05] MEDS: LOSARTAN POTASSIUM 50 MG TABLET. PO SCH (08:28)
[2018-12-05] MEDS: METOPROLOL SUCC 24HR ER 50 MG TAB.ER.24H. PO SCH (08:28)
[2018-12-05 10:45] VITALS: BP 149/71
--- NOTE | 2018-12-05 11:09 | PDOC ---
RAMIRO DANIEL APRN 12/05/18 1109: CARDIO Progress Notes Date and Time Date of Service 12/05/18 Time of Evaluation 1040 Subjective Subjective: No Chest Pain, No shortness of breath, No Palpitations Vitals Vitals Vital Signs Date Time Temp Pulse Resp B/P (MAP) Pulse Ox O2 Delivery O2 Flow Rate FiO2 12/05/18 10:45 98.1 73 18 149/71 (97) 94 Room Air 98.1 Weight Weight [ ] Input and Output Intake and Output Intake and Output 12/05/18 07:00 Intake Total 200 ml Balance 200 ml Intake Oral 200 ml # Voids 6 # Bowel Movements 1 Physical Exam HEENT: Neck Supple W Full Motion Chest: Symmetric LUNGS: Clear to Auscultation Heart: S1S2, RRR (paced) Abdomen: Soft N/T Extremities: No Edema Neurology: alert, oriented, follow commands Assessment Assessment 1. Chest pain, atypical. AMI ruled out. Most from MSK in origin. Recent echo with preserved LV systolic function. 2. Accelerated HTN; labile. More elevated in AM 3. SSS s/p PPM (Biotronik). Device check with normal function. AT/AF burden 0% 4. PAFIB: maintaining SR 5. CKD3 6. Hypokalemia; replaced 7. Hx of amiodarone lung injury Recommendations Rate controlled with BB/digoxin ECASA 81 mg for stroke prevention, poor candidate for chronic OAC Increase Losartan to 50mg BID as blood pressure more significantly elevated in the am Patient to monitor BP at home and report if consistently > 160. Consider outpatient ischemic evaluation F/u with Dr. Kothari as scheduled. ANGELICA KOTHARI MD 12/05/188: CARDIO Progress Notes Assessment Assessment Patient seen and examined. Agree with PLATER HELPER's assessment and plan. CP with atypical features and most probably musculoskeletal BP better controlled Plan ischemic evaluation as outpatient RAMIRO DANIEL APRN Dec 05, 2018 11:09 ANGELICA KOTHARI MD Dec 05, 2018 21:18
[2018-12-05] MEDS ORDERED: DOXY100T PO (11:33)
[2018-12-05] MEDS ORDERED: LOSA-73 PO (11:33)
--- NOTE | 2018-12-05 11:35 | SNU/HH DC ---
DISCHARGE WITH HOME HEALTH DISCHARGE INFORMATION: Discharge Date: Dec 05, 2018 Condition on Discharge: Stable CODE STATUS: Code Status: Full HOME HEALTH: Face to Face: I certify this patient is under my care and that I, or a nurse practitioner or екатерина larios's physician assistant primary care working with me, had a face to face encounter that meets the physician face to face encounter requirements with this patient on []. Medical Complications: HTN RN For Eval/Treatment: Yes Physical Therapy For: Evalulation/Treatment Occupational Therapy For: Evaluation/Treatment Home Health Aide For: Self-care BPM ANALYST For: Community Resources Pt Meets Homebound Status: Unsteady balance w/ amb, POST DISCHARGE ORDERS: Activity Instructions for Disc: Activity as tolerated Weight Bearing Status after Di: Full weight bearing DIET AFTER DISCHARGE: Cardiac Wound/Incision Care: Keep wound/cast CDI, No wound care needed CHECKS AFTER DISCHARGE: Checks after discharge: Check blood press - daily, Check your Temp as needed FOLLOW-UP: Follow up with: rpt CT chest in 2 mos, interval ff up PNA - RX given to pt TREATMENT/EQUIPMENT ORDERS: Adaptive Equipment Issued: None CERTIFICATION STATEMENT: Certification Statement: Certification Statement: Based on the above finding, I certify that this patient is confined to the home and needs intermittent shelter care, physical therapy and/or speech therapy, or continues to need occupational therapy.~ This patient is under my care, and I have initiated the establishment of the plan of care.~ This patient will be followed by myself or a community physician who will periodically review the plan of care. Home Meds Active Scripts Doxycycline Hyclate (DOXYCYCLINE HYCLATE) 100 Mg Tablet, 100 MG PO BID for lung infection MDD 1 for 7 Days, #14 TAB Prov:LORETTA LIN MD 12/05/18 Losartan Potassium (LOSARTAN POTASSIUM) 50 Mg Tablet, 50 MG PO BID for htn MDD 1, #60 TAB Prov:LORETTA LIN MD 12/05/18 Metoprolol Succinate (TOPROL XL) 50 Mg Tab.er.24h, 50 MG PO DAILY, #30 Prov:Paulina BOSE MD 03/26/16 Furosemide (LASIX) 20 Mg Tablet, 20 MG PO DAILY for 30 Days, TAB Prov:DOMINGO ECHOLS MD 07/11/15 Reported Medications [megestrol] No Conflict Check 12/04/18 Levothyroxine Sodium (LEVOTHYROXINE SODIUM) 75 Mcg Tablet, 1 TAB PO DAILY, #30 TAB 5 Refills 05/26/17 Digoxin (DIGOXIN) 125 Mcg Tablet, 1 TAB PO DAILY, #30 TAB 5 Refills 05/26/17 Discontinued Reported Medications Potassium Chloride (POTASSIUM CHLORIDE) 10 Meq Capsule.er, 10 MEQ PO DAILY, TAB.SR 03/26/16 LORETTA LIN MD Dec 05, 2018 11:35
--- NOTE | 2018-12-05 11:55 | PDOC3 ---
Discharge Summary Visit Information Date of Admission: Dec 04, 2018 Date of Discharge: Dec 05, 2018 Admitting Diagnosis Comment: Pleuritic chest pain Inflammatory lung changes on CT HX of repair PFO 2017 History of A. fib pacer defibrillator? - on BB digoxin, lasix at home Hypo-thyroidism on Synthroid Undernourished with a BMI 16 Hypokalemia chronic Brief Hospital Course Allergies Allergies Coded Allergies Type Severity Reaction Last Updated Verified bacitracin Allergy Intermediate Rash 06/02/17 Yes polymyxin B Allergy Intermediate Rash 06/02/17 Yes zolpidem Adverse Reaction Intermediate 06/03/17 Yes Vital Signs Vital Signs Date Time Temp Pulse Resp B/P (MAP) Pulse Ox O2 Delivery O2 Flow Rate FiO2 12/05/18 10:45 98.1 73 18 149/71 (97) 94 Room Air 98.1 Lab Results Laboratory Tests Test 12/04/18 02:31 12/04/18 09:35 White Blood Count 9.8 x10^3/uL (4.0-11.0) Red Blood Count 4.40 x10^6/uL (3.50-5.40) Hemoglobin 13.9 g/dL (12.0-15.5) Hematocrit 40.9 % (36.0-47.0) Mean Corpuscular Volume 93 fL (79-100) Mean Corpuscular Hemoglobin 32 pg (25-35) Mean Corpuscular Hemoglobin Concent 34 g/dL (31-37) Red Cell Distribution Width 14.6 % (11.5-14.5) Platelet Count 263 x10^3/uL (140-400) Neutrophils (%) (Auto) 54 % (31-73) Lymphocytes (%) (Auto) 35 % (24-48) Monocytes (%) (Auto) 8 % (0-9) Eosinophils (%) (Auto) 3 % (0-3) Basophils (%) (Auto) 0 % (0-3) Neutrophils # (Auto) 5.2 x10^3uL (1.8-7.7) Lymphocytes # (Auto) 3.4 x10^3/uL (1.0-4.8) Monocytes # (Auto) 0.8 x10^3/uL (0.0-1.1) Eosinophils # (Auto) 0.3 x10^3/uL (0.0-0.7) Basophils # (Auto) 0.0 x10^3/uL (0.0-0.2) Prothrombin Time 13.0 SEC (11.7-14.0) Prothromb Time International Ratio 1.0 (0.8-1.1) Sodium Level 140 mmol/L (136-145) Potassium Level 3.0 mmol/L (3.5-5.1) Chloride Level 102 mmol/L (98-107) Carbon Dioxide Level 30 mmol/L (21-32) Anion Gap 8 (6-14) Blood Urea Nitrogen 17 mg/dL (7-20) Creatinine 0.7 mg/dL (0.6-1.0) Estimated GFR (Cockcroft-Gault) 78.8 BUN/Creatinine Ratio 24 (6-20) Glucose Level 104 mg/dL (70-99) Calcium Level 8.8 mg/dL (8.5-10.1) Total Bilirubin 0.6 mg/dL (0.2-1.0) Aspartate Amino Transf (AST/SGOT) 12 U/L (15-37) Alanine Aminotransferase (ALT/SGPT) 14 U/L (14-59) Alkaline Phosphatase 49 U/L (46-116) Troponin I Quantitative < 0.017 ng/mL (0.000-0.055) 0.024 ng/mL (0.000-0.055) AU-Spo-S-Type Natriuretic Peptide 547 pg/mL (0-449) Total Protein 7.3 g/dL (6.4-8.2) Albumin 3.6 g/dL (3.4-5.0) Albumin/Globulin Ratio 1.0 (1.0-1.7) Magnesium Level 2.2 mg/dL (1.8-2.4) Brief Hospital Course Ms. Sheriff is a 88 old female who has current home health, she was admitted because of cough and chest pain. She has indwelling pacer defibrillator is functioning fine based on interrogation. She has lung infiltrate/inflammatory changes - started Doxy and to continue at home. She has emphysematous lungs but denies ever smoking. She does not complain of SOA that is significant. DisPo: Doxy and losartan to inc BID per cards Dw family Rpt CT 2mos time for interval ff up - Rx provided jayne Rn and multiple fam at bedside, dc 32 mins consults: cards Discharge Information Condition at Discharge: Improved, Stable Disposition/Orders: D/C to Home w/ HH Scheduled Digoxin (Digoxin) 125 Mcg Tablet, 1 TAB PO DAILY, #30 Ref 5 (Reported) Entered as Reported by: NERI GAUTHIER on 05/26/17 1317 Last Action: Continued on 12/04/18 0810 by LORETTA LIN Doxycycline Hyclate (Doxycycline Hyclate) 100 Mg Tablet, 100 MG PO BID for lung infection MDD 1 for 7 Days, #14 Prescribed by: LORETTA LIN on 12/05/18 1133 Furosemide (Lasix) 20 Mg Tablet, 20 MG PO DAILY for 30 Days Prescribed by: DOMINGO ECHOLS MD on 07/11/15 1211 Last Action: Continued on 12/04/18809 by LORETTA LIN Levothyroxine Sodium (Levothyroxine Sodium) 75 Mcg Tablet, 1 TAB PO DAILY, #30 Ref 5 (Reported) Entered as Reported by: PATTY BALDWIN on 05/26/17 1459 Last Action: Continued on 12/04/18809 by LORETTA LIN Losartan Potassium (Losartan Potassium) 50 Mg Tablet, 50 MG PO BID for htn MDD 1, #60 Prescribed by: LORETTA LIN on 12/05/18 1133 Metoprolol Succinate (Toprol Xl) 50 Mg Tab.er.24h, 50 MG PO DAILY, #30 Prescribed by: GWENDOLYN BOSE on 03/26/16 1318 Last Action: Converted on 12/04/18809 by LORETTA LIN Miscellaneous Medications [megestrol] , (Reported) Entered as Reported by: ROSS RIVERA on 12/04/18 05 Last Action: HELD on 12/04/18809 by LORETTA LIN Discontinued Medications Potassium Chloride (Potassium Chloride) 10 Meq Capsule.er, 10 MEQ PO DAILY, (Reported) Entered as Reported by: Jim Sen on 03/26/16 0747 Last Action: Discontinued on 12/04/18 0512 by LORETTA MACHADO MD Dec 05, 2018 11:55
--- NOTE | 2018-12-05 12:41 | NUR ---
SS following up with discharge planning. Discharge order received for home healthcare. SS met with pt and family in room and pt confirmed that she was on services with [facility], ; fax [phone]. SS phoned and faxed discharge orders and referral to [facility] for resumption of care. Pt's RN notified.
[2018-12-05] MEDS ORDERED: ASPI-612 PO (12:44)
[2018-12-05] MEDS ORDERED: POTA10TA12 PO (13:05)
--- NOTE | 2018-12-05 13:37 | NUR ---
Discharge Note: ALYSIA PERES 2 READER Discharge instructions and discharge home medications reviewed with Patient and a copy given. All questions have been answered and understanding verbalized. The following instructions and handouts were given: discharge instructions, HTN info, CP info, hypokalemia info, afib info, new meds info. Discontinued lines and drains: Peripheral IV intact. Patient discharged to Home w/services with Family Member via Wheelchair at 1337.
[2018-12-05] MEDS ORDERED: LOSARTAN POTASSIUM 50 MG TABLET. PO SCH (21:00)
== END 2018-12-05 13:37 | disposition home health service (06) | DRG 204 ==
LOC: ER 02:23 → 2 NORTH 03:00
PROVIDERS: ADMIT Internal Medicine; ATTEND Internal Medicine
DX: R07.81 Pleurodynia (principal); I13.0 Hypertensive heart and chronic kidney disease with heart failure and stage 1 through stage 4 chronic kidney disease, or unspecified chronic kidney disease; Z68.1 Body mass index [BMI] 19.9 or less, adult; E46 Unspecified protein-calorie malnutrition; R07.89 Other chest pain; E03.9 Hypothyroidism, unspecified; E78.5 Hyperlipidemia, unspecified; I25.10 Atherosclerotic heart disease of native coronary artery without angina pectoris; I48.91 Unspecified atrial fibrillation; I27.20 Pulmonary hypertension, unspecified; E87.6 Hypokalemia; M19.90 Unspecified osteoarthritis, unspecified site; I49.5 Sick sinus syndrome; I50.9 Heart failure, unspecified; M81.0 Age-related osteoporosis without current pathological fracture; N18.3 Chronic kidney disease, stage 3 (moderate); Z82.49 Family history of ischemic heart disease and other diseases of the circulatory system; I25.2 Old myocardial infarction; Z85.820 Personal history of malignant melanoma of skin; Z90.710 Acquired absence of both cervix and uterus; Z90.49 Acquired absence of other specified parts of digestive tract; Z88.8 Allergy status to other drugs, medicaments and biological substances
CPT/HCPCS: 36415; 71045; 71275; 80053; 83735; 83880; 84484; 85025; 85610; 93005; Q9967; 97110; 97116; 97530; 97535; 99285-25

== ENCOUNTER → 2019-02-08 | Outpatient (CLI) | payer MEDICARE ==
[~2019-02-08] MED LIST changes: +ASPI-612 PO; +CONTRAST GIVEN. MC PRN; +DOXY100T PO; +IOHEXOL 300 MG/ML 100ML VIAL. IV ONE; +LIDO700A21 TD; -LIDO700A39 TD; +megestrol
--- NOTE | 2019-02-08 13:07 | RAD ---
Examination: CT of the chest with IV contrast HISTORY: History of lung opacities COMPARISON: 12/09/2018 TECHNIQUE: Axial CT images of chest were performed with IV contrast. Coronal and sagittal reformats are performed Exposure: One or more of the following individualized dose reduction techniques were utilized for this examination: 1. Automated exposure control 2. Adjustment of the mA and/or kV according to patient size 3. Use of iterative reconstruction technique FINDINGS: The central airways are patent. The ascending aorta measures 4.3 cm in transverse dimension. Mild cardiomegaly Left-sided cardiac pacer is identified. Bilateral septal thickening identified in the lungs. Areas of patchy opacities identified in the bilateral lungs. Patchy nodular opacities identified in the bilateral lungs are identified. The previously visualized left lower lobe airspace opacity has near completely resolved. Small nodules identified in the bibasilar lungs with the largest measuring 7.5 mm. No evidence of pleural effusion or pneumothorax. The visualized liver, spleen, adrenals grossly appears unremarkable. Moderate degenerative changes thoracic spine. IMPRESSION: 1. The previously visualized nodular airspace opacities identified in the bilateral lungs are again identified. The patchy left lower lobe airspace opacity has near completely resolved. Bilateral lung nodules identified with the largest measuring 7.5 mm. Follow-up per Fleischner Society guidelines with a follow-up CT in 6 months 2. Ascending aortic aneurysm measuring 4.3 cm in transverse dimension. Electronically signed by: Eddi Greenfield MD (02/08/2019 1:04 PM) [email or web address]
== END | disposition home or self-care (01) ==
LOC: CT 09:20
PROVIDERS: ATTEND Internal Medicine
DX: I71.2 Thoracic aortic aneurysm, without rupture (principal); R91.8 Other nonspecific abnormal finding of lung field; I51.7 Cardiomegaly
CPT/HCPCS: 71260; Q9967